=== PATIENT | female | born 1985 | race Caucasian/White ===

== ENCOUNTER 2017-01-12 15:43 | Inpatient (IN) | payer MEDICARE ==
[2017-01-12] MEDS ORDERED: DUONEB 0.5-3 MG/3 ml Neb IH ONE ×2 (16:47→16:54)
[2017-01-12] MEDS ORDERED: solu-MEDROL 125 MG IV ONE (16:47)
--- NOTE | 2017-01-12 16:54 | ERPHSYRPT ---
- History of Present Illness Time Seen by Provider: 01/12/17 16:49 Source: patient Exam Limitations: no limitations Patient Subjective Stated Complaint: has hx of asthma and is being treated for uri. saw family on monday and was put on steroids and antibiotics. is not getting any better and is much more short of breath today. Triage Nursing Assessment: arrives per ems with moderate shortness of breath. is receiving duo neb per ems. exp wheezes heard. skin w/d, color normal. iv estab per ems. Physician History: mod shortness of breath and wheezing getting worse since Monday, hx of asthmna and Hodgekins lymphoma, no chest pain, +fam hx CAD, mother [place] at age 50yrs , no fever Activities at Onset: none Severity of Dyspnea-Max: moderate Severity of Dyspnea-Current: mild Possible Cause: chronic episodes Modifying Factors: Improves With: albuterol nebulizer Allergies/Adverse Reactions: acetaminophen [From Vicodin] Allergy (Verified 01/12/17 16:46) adhesive tape Allergy (Verified 01/12/17 16:48) hydrocodone [From Vicodin] Allergy (Verified 01/12/17 16:46) ibuprofen [From Motrin] Allergy (Verified 01/12/17 16:46) Home Medications: Albuterol Sulfate [Proair Hfa] 8.5 gm IH DAILY PRN PRN 01/12/17 [History] Cetirizine HCl [Zyrtec] 10 mg PO DAILY 01/12/17 [History] Famotidine 20 mg [Pepcid 20 MG] 20 mg PO BID 01/12/17 [History] Fluticasone Propionate [Flonase NASAL] 16 gm NS DAILY 01/12/17 [History] Fluticasone/Salmeterol [Advair 250-50 Diskus] 1 each IH BID 01/12/17 [History] Levothyroxine Sodium [Levoxyl] 200 mcg PO DAILY 01/12/17 [History] Montelukast Sodium 10 mg [Singulair 10 MG] 10 mg PO DAILY 01/12/17 [History] Hx Tetanus, Diphtheria Vaccination/Date Given: Yes (2015) Hx Influenza Vaccination/Date Given: No Hx Pneumococcal Vaccination/Date Given: No - Review of Systems Constitutional: Fatigue, No Fever Eyes: No Symptoms Ears, Nose, & Throat: No Symptoms Respiratory: Dyspnea, Wheezing Cardiac: No Chest Pain Abdominal/Gastrointestinal: No Symptoms Genitourinary Symptoms: No Symptoms Musculoskeletal: No Back Pain Skin: No Skin Lesions Neurological: No Dizziness Psychological: No Symptoms - Past Medical History Pertinent Past Medical History: Yes Respiratory History: Asthma Other Medical History: hodgkins lymphoma, - Past Surgical History Past Surgical History: Yes Musculoskeletal: Orthopedic Surgery Other Surgical History: fx of ankle - Social History Smoking Status: Former smoker Exposure to second hand smoke: Yes Drug Use: marijuana Patient Lives Alone: No - Female History Hx Last Menstrual Period: 12/07/16 - Nursing Vital Signs Nursing Vital Signs: Initial Vital Signs Temperature 97.3 F 01/12/17 15:45 Pulse Rate 99 H 01/12/17 15:45 Respiratory Rate 24 01/12/17 15:45 Blood Pressure 155/80 01/12/17 15:45 O2 Sat by Pulse Oximetry 97 01/12/17 15:45 Pain Scale Pain Intensity 6 - Physical Exam General Appearance: no apparent distress Eye Exam: PERRL/EOMI, eyes nml inspection Ears, Nose, Throat Exam: hearing grossly normal Neck Exam: normal inspection Respiratory Exam: wheezing, No stridor Cardiovascular/Chest Exam: regular rate/rhythm Abdominal/Gastrointestinal Exam: soft, No tenderness Extremity Exam: non-tender Neurologic Exam: alert, oriented x 3, cooperative, normal mood/affect Skin Exam: normal color, warm, dry SpO2 Interpretation: normal SpO2: 97 Oxygen Delivery: Room Air - Course Nursing assessment & vital signs reviewed: Yes EKG Interpreted by Me: RATE (no stemi), Sinus Rhythm - Radiology Exams Chest X-ray Interpretation: Interpreted by me, No Pneumonia Ordered Tests: Active Orders 24 hr Category Date Time Status EKG-ER Only STAT Care 01/12/17 18:47 Active CHEST 2 VIEWS (PA AND LAT) Stat Exams 01/12/17 16:48 Taken BLOOD CULTURE Stat Lab 01/12/17 17:10 Received CBC W DIFF Stat Lab 01/12/17 16:47 Completed CMP Stat Lab 01/12/17 16:47 Completed D-DIMER QUANTITATION Stat Lab 01/12/17 16:47 Completed HCG QUALITATIVE,SERUM Stat Lab 01/12/17 Completed Lactic Acid Stat Lab 01/12/17 17:10 Results Manual Differential NC Stat Lab 01/12/17 16:47 Completed NT PRO BNP Stat Lab 01/12/17 16:47 Completed PROTIME WITH INR Stat Lab 01/12/17 18:15 Completed PTT Stat Lab 01/12/17 18:15 Completed TROPONIN Q3H Lab 01/12/17 16:00 Completed TROPONIN Q3H Lab 01/12/17 20:00 Ordered TROPONIN Q3H Lab 01/12/17 23:00 Ordered TROPONIN Q3H Lab 01/13/17 02:00 Ordered TROPONIN Q3H Lab 01/13/17 05:00 Ordered Respiratory Nebulizer STAT RT 01/12/17 16:49 Completed Transfer Order Routine Transfer 01/12/17 Ordered Medication Summary Generic Name Dose Route Start Last Admin Trade Name Freq PRN Reason Stop Dose Admin Sodium Chloride 1,000 mls @ 999 mls/hr 01/12/17 17:45 Sodium Chloride 0.9% 1000 Ml IV 01/12/17 20:45 .Q1H1M CRISTIANO Discontinued Medications Generic Name Dose Route Start Last Admin Trade Name Freq PRN Reason Stop Dose Admin Albuterol/Ipratropium 3 ml 01/12/17 16:47 01/12/17 16:56 Duoneb 0.5-3 Mg/3 Ml Neb IH 01/12/17 16:48 3 ml STAT ONE Administration Albuterol/Ipratropium Confirm 01/12/17 16:54 Duoneb 0.5-3 Mg/3 Ml Neb Administered 01/12/17 16:55 Dose 3 ml IH .STK-MED ONE Aspirin 324 mg 01/12/17 18:13 01/12/17 18:21 Baby Aspirin 81 Mg Chew PO 01/12/17 18:14 324 mg STAT ONE Administration Piperacillin Sod/Tazobactam Sod 3.375 gm in 100 mls @ 200 mls/hr 01/12/17 17: 39 01/12/17 17:57 Zosyn 3.375gm/100 Ml D5w IV 01/12/17 18:08 200 mls/hr STAT STA Administration Piperacillin Sod/Tazobactam Sod Confirm 01/12/17 17:45 Zosyn 3.375gm/100 Ml D5w Administered 01/12/17 17:46 Dose 3.375 gm in 100 mls @ ud IV .STK-MED ONE Methylprednisolone Sodium Succinate 125 mg 01/12/17 16:47 01/12/17 16:55 Solu-Medrol 125 Mg IV 01/12/17 16:48 125 mg STAT ONE Administration Methylprednisolone Sodium Succinate Confirm 01/12/17 16:55 Solu-Medrol 125 Mg Administered 01/12/17 16:56 Dose 125 mg .ROUTE .STK-MED ONE Morphine Sulfate 2 mg 01/12/17 18:13 01/12/17 18:26 Morphine Sulfate 2 Mg Inj IV 01/12/17 18:14 2 mg STAT ONE Administration Morphine Sulfate Confirm 01/12/17 18:20 Morphine Sulfate 2 Mg Inj Administered 01/12/17 18:21 Dose 2 mg .ROUTE .STK-MED ONE Lab/Rad Data: Laboratory Result Diagrams 01/12/17 16:47 01/12/17 16:47 Laboratory Results 01/12/17 01/12/17 01/12/17 Range/Units Unknown 18:15 17:10 WBC (4.0-10.5) K/mm3 RBC (4.1-5.4) M/mm3 Hgb (12.0-16.0) gm/dl Hct (35-47) % MCV (78-100) fl MCH (26-32) pg MCHC (32-36) g/dl RDW (11.5-14.0) % Plt Count (150-450) K/mm3 MPV (6-9.5) fl INR 1.01 (0.8-3.0) APTT 28.1 (25.3-37.0) SECONDS D-Dimer (0-500) ng/mL Sodium (136-145) mEq/L Potassium (3.5-5.1) mEq/L Chloride (98-107) mEq/L Carbon Dioxide (21-32) mEq/L Anion Gap (5-15) MEQ/L BUN (9-20) mg/dL Creatinine (0.55-1.30) mg/dl Estimated GFR ML/MIN Glucose (70-110) MG/DL Lactic Acid 3.3 H (0.4-2.0) Calcium (8.5-10.1) mg/dL Total Bilirubin (0.2-1.0) mg/dL AST (15-37) U/L ALT (12-78) U/L Alkaline Phosphatase (46-116) U/L Troponin I (0.000-0.056) ng/ml NT-Pro-B Natriuret Pep (0-125) pg/ml Serum Total Protein (6.4-8.2) gm/dL Albumin (3.4-5.0) g/dL Serum , Qual NEGATIVE (Negative) 01/12/17 01/12/17 01/12/17 Range/Units 16:47 16:47 16:47 WBC 10.8 H (4.0-10.5) K/mm3 RBC 4.97 (4.1-5.4) M/mm3 Hgb 14.1 (12.0-16.0) gm/dl Hct 41.9 (35-47) % MCV 84.3 (78-100) fl MCH 28.4 (26-32) pg MCHC 33.7 (32-36) g/dl RDW 15.0 H (11.5-14.0) % Plt Count 261 (150-450) K/mm3 MPV 10.1 H (6-9.5) fl INR (0.8-3.0) APTT (25.3-37.0) SECONDS D-Dimer < 215 (0-500) ng/mL Sodium 135 L (136-145) mEq/L Potassium 3.3 L (3.5-5.1) mEq/L Chloride 99 (98-107) mEq/L Carbon Dioxide 20.7 L (21-32) mEq/L Anion Gap 18.8 H (5-15) MEQ/L BUN 15 (9-20) mg/dL Creatinine 0.90 (0.55-1.30) mg/dl Estimated GFR > 60 ML/MIN Glucose 282 H (70-110) MG/DL Lactic Acid (0.4-2.0) Calcium 9.2 (8.5-10.1) mg/dL Total Bilirubin 0.30 (0.2-1.0) mg/dL AST 45 H (15-37) U/L ALT 86 H (12-78) U/L Alkaline Phosphatase 79 (46-116) U/L Troponin I (0.000-0.056) ng/ml NT-Pro-B Natriuret Pep 49 (0-125) pg/ml Serum Total Protein 7.6 (6.4-8.2) gm/dL Albumin 3.7 (3.4-5.0) g/dL Serum , Qual (Negative) 01/12/17 Range/Units 16:00 WBC (4.0-10.5) K/mm3 RBC (4.1-5.4) M/mm3 Hgb (12.0-16.0) gm/dl Hct (35-47) % MCV (78-100) fl MCH (26-32) pg MCHC (32-36) g/dl RDW (11.5-14.0) % Plt Count (150-450) K/mm3 MPV (6-9.5) fl INR (0.8-3.0) APTT (25.3-37.0) SECONDS D-Dimer (0-500) ng/mL Sodium (136-145) mEq/L Potassium (3.5-5.1) mEq/L Chloride (98-107) mEq/L Carbon Dioxide (21-32) mEq/L Anion Gap (5-15) MEQ/L BUN (9-20) mg/dL Creatinine (0.55-1.30) mg/dl Estimated GFR ML/MIN Glucose (70-110) MG/DL Lactic Acid (0.4-2.0) Calcium (8.5-10.1) mg/dL Total Bilirubin (0.2-1.0) mg/dL AST (15-37) U/L ALT (12-78) U/L Alkaline Phosphatase (46-116) U/L Troponin I < 0.017 (0.000-0.056) ng/ml NT-Pro-B Natriuret Pep (0-125) pg/ml Serum Total Protein (6.4-8.2) gm/dL Albumin (3.4-5.0) g/dL Serum , Qual (Negative) - Progress Progress: improved Air Movement: good Blood Culture(s) Obtained: Yes Antibiotics given: Yes Discussed with : Marie Will see patient in: hospital (full admit) Counseled pt/family regarding: lab results, diagnosis, rad results (lactate 3.3 , glucose 282, wbc 11.8, troponin and ddimer neg) - Departure Time of Disposition: 18:53 Departure Disposition: In-patient Admission Clinical Impression: COPD (chronic obstructive pulmonary disease) Qualifiers: COPD type: COPD with acute exacerbation Qualified Code(s): J44.1 - Chronic obstructive pulmonary disease with (acute) exacerbation Chest pain Qualifiers: Chest pain type: chest pain on breathing Qualified Code(s): R07.1 - Chest pain on breathing Condition: Fair Critical Care Time: No Referrals: RUDI GERONIMO [Primary Care Provider] - Instructions: Chronic Obstructive Pulmonary Disease
[2017-01-12] MEDS ORDERED: solu-MEDROL 125 MG ONE (16:55)
[2017-01-12 17:00] LABS: Mean Cell Volume 84.3 fl (78-100); Mean Corpuscular Hemoglobin 28.4 pg (26-32); Mean Platelet Volume 10.1 fl (6-9.5); Platelet Count 261 K/mm3 (150-450); Red Blood Count 4.97 M/mm3 (4.1-5.4); White Blood Count 10.8 K/mm3 (4.0-10.5)
[2017-01-12 17:10] LABS: ALBUMIN 3.7 g/dL (3.4-5.0); ALKALINE PHOSPHATASE 79 U/L (46-116); ANION GAP 18.8 MEQ/L (5-15); BLOOD UREA NITROGEN 15 mg/dL (9-20); CHLORIDE 99 mEq/L (98-107); Carbon Dioxide 20.7 mEq/L (21-32); Glucose 282 MG/DL (70-110); Potassium 3.3 mEq/L (3.5-5.1); SGOT/AST 45 U/L (15-37); SGPT/ALT 86 U/L (12-78); SODIUM 135 mEq/L (136-145); Total Protein 7.6 gm/dL (6.4-8.2)
[2017-01-12 17:15] LABS: Lactic Acid 3.3 (0.4-2.0)
[2017-01-12] MEDS ORDERED: Zosyn 3.375GM/100 Ml D5W 3.375 GM/100 ML IVPB IV STA (17:39)
[2017-01-12] MEDS ORDERED: Sodium Chloride 0.9% 1000 ML 1,000 ML ONE (17:45)
[2017-01-12] MEDS ORDERED: Zosyn 3.375GM/100 Ml D5W 3.375 GM/100 ML IVPB IV ONE (17:45)
[2017-01-12] MEDS ORDERED: BABY ASPIRIN 81 MG CHEW PO ONE (18:13)
[2017-01-12] MEDS ORDERED: MORPHINE SULFATE 2 MG INJ IV ONE (18:13)
[2017-01-12 18:18] LABS: INR 1.01 (0.8-3.0); PROTIME 11.2 SECONDS (9.95-12.35)
[2017-01-12] MEDS ORDERED: MORPHINE SULFATE 2 MG INJ ONE (18:20)
[2017-01-12 18:21] LABS: PTT 28.1 SECONDS (25.3-37.0)
[2017-01-12] MEDS ORDERED: Sodium Chloride 0.9% 1000 ML 2,000 ML ONE (19:10)
[2017-01-12] MEDS: Sodium Chloride 0.9% 1000 ML 1,000 ML IV SCH ×3 (19:11→23:04)
[2017-01-12 19:22] LABS: Eosinophil 1 % (0.00-3.0); Platelet Estimate NORMAL (NORMAL); Total Cells Counted 100
[2017-01-12] MEDS ORDERED: TYLENOL 325 MG PO PRN (19:48)
[2017-01-12] MEDS: MORPHINE SULFATE 2 MG INJ IV PRN (21:16)
[2017-01-12] MEDS: PROVENTIL 2.5 MG/3 ML NEB IH PRN (21:39)
[2017-01-12 22:45] LABS: Lactic Acid 5.5 (0.4-2.0)
[2017-01-12] MEDS ORDERED: NovoLOG Insulin ONE (23:10)
[2017-01-12] MEDS: NovoLOG Insulin SQ SCH (23:12)
[2017-01-13] MEDS: solu-MEDROL 125 MG IV SCH ×5 (00:51→23:52)
[2017-01-13] MEDS: Zosyn 3.375GM/100 Ml D5W 3.375 GM/100 ML IVPB IV SCH ×5 (00:51→23:52)
[2017-01-13] MEDS: MORPHINE SULFATE 2 MG INJ IV PRN ×6 (01:40→23:52)
[2017-01-13 02:46] LABS: Lactic Acid 5.1 (0.4-2.0)
[2017-01-13] MEDS ORDERED: PROVENTIL Solution 2.5 MG/0.5 ML IH ONE (03:53)
[2017-01-13] MEDS: PROVENTIL 2.5 MG/3 ML NEB IH PRN ×2 (03:55→06:46)
[2017-01-13 05:19] LABS: Lactic Acid 3.9 (0.4-2.0)
[2017-01-13 05:29] LABS: Mean Cell Volume 84.7 fl (78-100); Mean Corpuscular Hemoglobin 28.6 pg (26-32); Mean Platelet Volume 9.6 fl (6-9.5); Platelet Count 259 K/mm3 (150-450); Red Blood Count 4.72 M/mm3 (4.1-5.4); Red Cell Distribution Width 14.8 % (11.5-14.0)
[2017-01-13] MEDS: Advair Hfa 115/21 Common canister IH SCH ×2 (06:46→19:58)
[2017-01-13 07:27] LABS: Lactic Acid 4.9 (0.4-2.0)
[2017-01-13 07:27] LABS: BAND 6 % (0.0-2.0); Total Cells Counted 100
[2017-01-13 07:30] LABS: Platelet Estimate NORMAL (NORMAL); Toxic Granulation 2+
[2017-01-13] MEDS ORDERED: NovoLOG Insulin SQ SCH (07:30)
[2017-01-13 07:39] LABS: White Blood Count 12.8 K/mm3 (4.0-10.5)
[2017-01-13] MEDS: NovoLOG Insulin SQ SCH ×4 (07:41→22:52)
[2017-01-13] MEDS: Sodium Chloride 0.9% 1000 ML 1,000 ML IV SCH ×2 (08:04→19:42)
[2017-01-13] MEDS: PROTONIX 40 MG IV IV SCH (08:04)
--- NOTE | 2017-01-13 09:08 | XRAY ---
Exam: Two-view chest from 01/12/2017. Comparison: None. Indication: Shortness of breath. Findings: Upright PA and lateral chest films are submitted for evaluation. The heart size and contour are normal. The lungs appear slightly hypoinflated. The nenita and mediastinal structures appear unremarkable. The lungs reveal no infiltrates, vascular congestion, pneumothorax, or pleural fluid. The lateral film is slightly rotated. No acute osseous process is seen. Impression: 1. Slightly hypoinflated lungs. Otherwise, no acute cardiopulmonary disease is seen.
[2017-01-13] MEDS ORDERED: FLUCELVAX QUAD 2017-2018 SYR IM ONE (10:00)
[2017-01-13] MEDS: Diflucan 100 MG PO SCH (10:55)
[2017-01-13] MEDS: DUONEB 0.5-3 MG/3 ml Neb IH SCH ×4 (11:04→23:16)
[2017-01-13] MEDS: SYNTHROID 100 MCG PO SCH (11:38)
[2017-01-13] MEDS: Zithromax 250 MG TABLET PO SCH (11:38)
[2017-01-13] MEDS: Singulair 10 MG PO SCH (11:38)
[2017-01-13] MEDS: CLARITIN 10 MG PO SCH (11:38)
[2017-01-13] MEDS: Flonase NASAL NS SCH (11:38)
[2017-01-13] MEDS: Pepcid 20 MG PO SCH ×2 (11:40→22:52)
[2017-01-13] MEDS ORDERED: PROVENTIL COMMON CANISTER IH SCH (12:00)
[2017-01-13] MEDS ORDERED: solu-MEDROL 125 MG IV SCH (12:00)
--- NOTE | 2017-01-13 13:02 | HP ---
CHIEF COMPLAINT: Shortness of breath. HISTORY OF PRESENT ILLNESS: The patient is a 31 year-old white female with a long history of severe asthma. The patient had exacerbation and presented herself to the emergency room for evaluation and management. The patient just recently moved here from [place]. She has not seen any other physicians here to this point. The patient does also have a history of Hodgkin's lymphoma which is in remission. She had hypothyroidism. HOME MEDICATIONS: Albuterol PRN. She is on Zithromax presently. She takes Zyrtec 10 mg a day, famotidine 20 mg b.i.d., Flonase nasal spray, Advair 250/50 one puff b.i.d., levothyroxine 200 mcg daily, Singulair 10 mg a day, prednisone 20 mg, 16 mg is what she has presently been taking after a visit at [facility]. ALLERGIES: HYDROCODONE, IBUPROFEN, ADHESIVE TAPE. PHYSICAL EXAMINATION: Revealed an obese white female currently sitting up and conversing easily, not presently appearing to be short of breath obviously. Her temperature on arrival to the emergency room showed a temperature 97.3F, pulse 99, respiratory rate 24, blood pressure 155/80 with 02 saturation on room air noted to be at 97%. HEENT: Normocephalic, atraumatic. Pupils equal round reactive to light. The patient is currently wearing oxygen per nasal cannula. Oropharynx is pink and moist. NECK: Supple without lymphadenopathy, thyromegaly or JVD. CHEST: Bilateral wheezes pretty much throughout expiration. HEART: Regular rate and rhythm without murmurs, rubs or gallops. ABDOMEN: Soft, nontender, nondistended without hepatosplenomegaly or palpable masses. EXTREMITIES: Without cyanosis, clubbing or edema. NEUROLOGIC: The patient is alert and oriented x3 with no focal deficits noted. LAB DATA AND TESTS: The patient's chest x-ray showed slightly hypoinflated but otherwise normal lungs. Her initial laboratory studies showed a hemoglobin of 14.1, PLT count of 261,000. White blood cell count 10,800. HCG negative. Lactic acid elevated at 3.3. Metabolic panel showed a glucose of 282 nonfasting, BUN 15, creatinine 0.9. Electrolytes: Sodium 135, potassium 3.3. Liver enzymes are slightly elevated at 45 and 86 respectively. ProBNP normal at 49. D-dimer was less than 215. Troponins less than 0.017. International normalized ratio 1.01. ASSESSMENT: A patient with acute asthma. She has been admitted to the hospital for IV steroid medications and nebulizer treatments, oxygen on as needed basis. She will continue her usual home medications which are extensive for the use of asthma and allergies. The patient is requesting a Diflucan tablet for yeast infection. She reports she always get yeast infection when she ends up in the hospital. She reports that she has been previously intubated on previous admissions for exacerbation of asthma. Due to the patient's elevated lactic acid, sepsis protocol has been initiated. She has been started on Zosyn empirically. We will obtain a pulmonary consultation due to the patient's severity of asthma in case she should deteriorate.
[2017-01-13] MEDS ORDERED: Miralax Powder 17GM PACKET PO PRN (17:14)
[2017-01-13] MEDS ORDERED: Ventolin Hfa MDI IH SCH (22:00)
[2017-01-14] MEDS: DUONEB 0.5-3 MG/3 ml Neb IH SCH ×2 (03:31→06:59)
[2017-01-14] MEDS: Zosyn 3.375GM/100 Ml D5W 3.375 GM/100 ML IVPB IV SCH (05:19)
[2017-01-14] MEDS: MORPHINE SULFATE 2 MG INJ IV PRN (05:19)
[2017-01-14] MEDS: solu-MEDROL 125 MG IV SCH (05:19)
[2017-01-14 05:42] LABS: Mean Corpuscular Hemoglobin 28.1 pg (26-32); Mean Platelet Volume 9.4 fl (6-9.5); Platelet Count 267 K/mm3 (150-450); Red Blood Count 4.66 M/mm3 (4.1-5.4); Red Cell Distribution Width 14.7 % (11.5-14.0)
[2017-01-14 06:15] LABS: ALBUMIN 3.5 g/dL (3.4-5.0); ALKALINE PHOSPHATASE 62 U/L (46-116); ANION GAP 20.3 MEQ/L (5-15); BLOOD UREA NITROGEN 17 mg/dL (9-20); CHLORIDE 100 mEq/L (98-107); Carbon Dioxide 18.2 mEq/L (21-32); Glucose 303 MG/DL (70-110); Potassium 3.9 mEq/L (3.5-5.1); SGOT/AST 25 U/L (15-37); SGPT/ALT 72 U/L (12-78); SODIUM 135 mEq/L (136-145); Total Protein 7.3 gm/dL (6.4-8.2)
[2017-01-14] MEDS: Advair Hfa 115/21 Common canister IH SCH (06:59)
[2017-01-14 07:15] VITALS: BP 136/63; PULSE 101; O2SAT 96
[2017-01-14] MEDS: CLARITIN 10 MG PO SCH (08:15)
[2017-01-14] MEDS: Diflucan 100 MG PO SCH (08:15)
[2017-01-14] MEDS: Singulair 10 MG PO SCH (08:15)
[2017-01-14] MEDS: Pepcid 20 MG PO SCH (08:15)
[2017-01-14] MEDS: Zithromax 250 MG TABLET PO SCH (08:15)
[2017-01-14] MEDS: PROTONIX 40 MG IV IV SCH (08:15)
[2017-01-14] MEDS: SYNTHROID 100 MCG PO SCH (08:15)
[2017-01-14] MEDS: NovoLOG Insulin SQ SCH (08:15)
[2017-01-14] MEDS: Flonase NASAL NS SCH (08:16)
--- NOTE | 2017-01-14 08:31 | PCM.DS ---
Discharge Summary Date of Admission: 01/12/17 19:40 Admitting Physician: RUDI GERONIMO Consults: Consults on Case 01/13/17 10:47 Consult Pulmonology ROUTINE Primary Care Provider: RUDI GERONIMO Allergies Allergies adhesive tape Allergy (Verified 01/12/17 16:48) chlorhexidine Allergy (Verified 01/12/17 20:52) hydrocodone [From Vicodin] Allergy (Verified 01/12/17 16:46) ibuprofen [From Motrin] Allergy (Verified 01/12/17 16:46) Hospital Summary - Hospital Course Hospital Course: patient was admitted with asthma exacerbation, was treated with IV zosyn and solu medrol. her sats are normal, she feels much better. chest pain has resolved , she is afebrile and feeling much better. - Vitals & Intake/Output Vital Signs: Vital Signs Temperature 97.7 F 01/14/17 07:15 Pulse Rate 101 H 01/14/17 07:15 Respiratory Rate 20 01/14/17 07:15 Blood Pressure 136/63 01/14/17 07:15 O2 Sat by Pulse Oximetry 96 01/14/17 07:15 Oxygen-Last Documented O2 Percentage 2 Liters = 28% Intake & Output: Intake & Output 01/11/17 01/12/17 01/13/17 01/14/17 11:59 11:59 11:59 11:59 Intake Total 4120 2690 Output Total 1900 4000 Balance 2220 -1310 Weight 107.955 kg 107.955 kg - Lab Result Diagrams: 01/14/17 05:10 01/14/17 05:10 Lab Results-Last 24 Hrs: Accuchecks Date 01/14/17 Date 01/13/17 Date 01/13/17 Date 01/13/17 Time 08:12 Time 22:00 Time 16:30 Time 11:15 Accucheck Value: 304 Accucheck Value: 368 Accucheck Value: 379 Accucheck Value: 319 Lab Results-Last 24 Hours 01/13/17 01/14/17 01/14/17 Range/Units 05:13 05:10 05:10 WBC 17.0 H (4.0-10.5) K/mm3 RBC 4.66 (4.1-5.4) M/mm3 Hgb 13.1 (12.0-16.0) gm/dl Hct 39.6 (35-47) % MCV 85.0 (78-100) fl MCH 28.1 (26-32) pg MCHC 33.1 (32-36) g/dl RDW 14.7 H (11.5-14.0) % Plt Count 267 (150-450) K/mm3 MPV 9.4 (6-9.5) fl Sodium 135 L (136-145) mEq/L Potassium 3.9 (3.5-5.1) mEq/L Chloride 100 (98-107) mEq/L Carbon Dioxide 18.2 L (21-32) mEq/L Anion Gap 20.3 H (5-15) MEQ/L BUN 17 (9-20) mg/dL Creatinine 0.91 (0.55-1.30) mg/dl Estimated GFR > 60 ML/MIN Glucose 303 H (70-110) MG/DL Hemoglobin A1c 6.5 H (4.5-6.2) Calcium 9.3 (8.5-10.1) mg/dL Total Bilirubin 0.40 (0.2-1.0) mg/dL AST 25 (15-37) U/L ALT 72 (12-78) U/L Alkaline Phosphatase 62 (46-116) U/L Serum Total Protein 7.3 (6.4-8.2) gm/dL Albumin 3.5 (3.4-5.0) g/dL Micro Results-Entire Visit: Accuchecks Date 01/14/17 Date 01/13/17 Date 01/13/17 Date 01/13/17 Time 08:12 Time 22:00 Time 16:30 Time 11:15 Accucheck Value: 304 Accucheck Value: 368 Accucheck Value: 379 Accucheck Value: 319 - Procedures and Test Procedures and Tests throughout Hospitalization: Therapy Orders & Screens 01/12/17 21:02 neb [Respiratory Nebulizer] PRN Comment: Diagnosis: Shortness of Breath 01/13/17 07:00 Respiratory MDI BID Comment: Diagnosis: asthma 01/13/17 11:00 Respiratory Nebulizer Q4H Comment: DUONEB Q4 Diagnosis: asthma Discharge Exam General Appearance: no apparent distress, alert Respiratory Exam: normal breath sounds, lungs clear, No respiratory distress Cardiovascular Exam: regular rate/rhythm, normal heart sounds Gastrointestinal/Abdomen Exam: soft, No tenderness, No mass Extremity Exam: normal inspection, normal range of motion Final Diagnosis/Problem List - Final Discharge Diagnosis/Problem (1) Asthma exacerbation Current Visit: Yes Status: Acute Assessment & Plan: home on po prednisone taper, has nebulizer at home but states she needs duoneb refills. (2) Chest pain Current Visit: Yes Status: Acute - Discharge Disposition: Home, Self-Care Condition: Good Prescriptions: New Albuterol/Ipratropium 3ml Neb* [DUONEB 0.5-3 MG/3 ml Neb] 3 ml IH Q4HRT # 100 ampul.neb Azithromycin [Zithromax] 250 mg PO UD #6 tablet Continue Fluticasone Propionate [Flonase NASAL] 16 gm NS QAM Cetirizine HCl [Zyrtec] 10 mg PO QAM Albuterol Sulfate [Proair Hfa] 8.5 gm IH BID Montelukast Sodium 10 mg [Singulair 10 MG] 10 mg PO QAM Famotidine 20 mg [Pepcid 20 MG] 20 mg PO BID Levothyroxine Sodium [Levoxyl] 200 mcg PO QAM Fluticasone/Salmeterol [Advair 250-50 Diskus] 1 each IH BID Albuterol Sulfate [Proair Hfa] 1 puff IH UD PRN PRN Reason: Shortness Of Breath Prednisone 20 mg [Deltasone 20 mg] 60 mg PO QAM #18 tablet Discontinued Azithromycin [Zithromax Tri-Isaías] 500 mg PO QAM Instructions: Chronic Obstructive Pulmonary Disease Follow up with: RUDI GERONIMO [Primary Care Provider] - JAGJIT DUBOSE [ACTIVE STAFF] - 1 Week
[2017-01-14] MEDS ORDERED: LEVOTHYROXINE SODIUM 200 MCG PO SCH (10:00)
[2017-01-14] MEDS ORDERED: NON-FORMULARY ITEM (Cetirizine Hcl [Zyrtec] 10 MG) PO SCH (10:00)
== END 2017-01-14 10:05 | disposition home or self-care (01) | DRG 203 ==
LOC: ED 15:43 → MED SURG 19:40 → INTOOBSV 19:40 → OBSVTOIN 19:40
PROVIDERS: ADMIT Family Medicine; ATTEND Family Medicine
DX: J45.901 Unspecified asthma with (acute) exacerbation (principal); R07.9 Chest pain, unspecified; Z85.72 Personal history of non-Hodgkin lymphomas; E03.9 Hypothyroidism, unspecified; Z79.899 Other long term (current) drug therapy
CPT/HCPCS: 36415; 71020; 80053; 82962; 83036; 83605; 83880; 84484; 84703; 85025; 85027; 85379; 85610; 85730; 87040; 93005; 94640; 94760; 96360; 96361; 96374; 99285; G0008; J2270; J2543; J2930; 90682; A9270-GY

== ENCOUNTER 2017-01-28 03:21 | Observation (INO) | payer MEDICARE ==
[2017-01-28] MEDS ORDERED: DUONEB 0.5-3 MG/3 ml Neb IH ONE ×2 (03:35→03:36)
[2017-01-28] MEDS ORDERED: solu-MEDROL 125 MG IV ONE (03:36)
[2017-01-28] MEDS ORDERED: Sodium Chloride 0.9% 1000 ML 1,000 ML IV SCH ×2 (03:45→05:00)
[2017-01-28 03:48] LABS: BASOPHIL % 0.2 % (0.0-0.4); Eosinophil % 0.6 % (0.00-5.0); Granulocytes % 79.9 % (36.0-66.0); Mean Cell Volume 86.7 fl (78-100); Mean Corpuscular Hemoglobin 28.8 pg (26-32); Mean Platelet Volume 9.3 fl (6-9.5); Monocytes % 7.3 % (0.0-12.0); Platelet Count 185 K/mm3 (150-450); Red Blood Count 4.37 M/mm3 (4.1-5.4); Red Cell Distribution Width 15.7 % (11.5-14.0); White Blood Count 15.8 K/mm3 (4.0-10.5)
[2017-01-28] MEDS ORDERED: Tylenol #3 Tablet PO ONE (03:54)
--- NOTE | 2017-01-28 03:54 | ERPHSYRPT ---
- History of Present Illness Time Seen by Provider: 01/28/17 03:30 Source: patient Exam Limitations: clinical condition Patient Subjective Stated Complaint: shortness of air Triage Nursing Assessment: pt is alert and oriented x3, lung sound wheezy, pulses equal bilateral radius, pupils perrla2, skin warm dry and itnat, patietn has intermittant cough , dark green mucus expectorated. Physician History: PATIENT WITH A HISTORY OF COPD, ASTHMA, AND HODGKINS LYPMPHOMA COMPLAINS OF DIFFICULTY BREATHING, PRODUCTIVE COUGH YELLOW GREEN SPUTUM FOR 2 DAYS. DENIES FEVER OR CHILLS. HAS NO RELIEF AFTER TAKING NEBULIZERS AT HOME. Timing/Duration: yesterday Activities at Onset: none Severity of Dyspnea-Max: moderate Severity of Dyspnea-Current: moderate Possible Cause: occasional episodes Modifying Factors: Improves With: coughing, exertion Associated Symptoms: cough, wheezing International travel in last 2 weeks: No Allergies/Adverse Reactions: adhesive tape Allergy (Verified 01/12/17 16:48) chlorhexidine Allergy (Verified 01/12/17 20:52) hydrocodone [From Vicodin] Allergy (Verified 01/12/17 16:46) ibuprofen [From Motrin] Allergy (Verified 01/12/17 16:46) Home Medications: Albuterol Sulfate [Proair Hfa] 1 puff IH UD PRN 01/12/17 [History] Albuterol Sulfate [Proair Hfa] 8.5 gm IH BID 01/12/17 [History] Cetirizine HCl [Zyrtec] 10 mg PO QAM 01/12/17 [History] Famotidine 20 mg [Pepcid 20 MG] 20 mg PO BID 01/12/17 [History] Fluticasone Propionate [Flonase NASAL] 16 gm NS QAM 01/12/17 [History] Fluticasone/Salmeterol [Advair 250-50 Diskus] 1 each IH BID 01/12/17 [History] Levothyroxine Sodium [Levoxyl] 200 mcg PO QAM 01/12/17 [History] Montelukast Sodium 10 mg [Singulair 10 MG] 10 mg PO QAM 01/12/17 [History] Hx Tetanus, Diphtheria Vaccination/Date Given: Yes Hx Influenza Vaccination/Date Given: No Hx Pneumococcal Vaccination/Date Given: No Immunizations Up to Date: Yes - Review of Systems Constitutional: No Fever, No Chills Eyes: No Symptoms Ears, Nose, & Throat: No Symptoms Respiratory: Cough, Dyspnea, Dyspnea on Exertion ([place]), Wheezing Cardiac: No Symptoms, No Chest Pain, No Edema, No Syncope Abdominal/Gastrointestinal: No Symptoms, No Abdominal Pain, No Nausea, No Vomiting, No Diarrhea Genitourinary Symptoms: No Symptoms, No Dysuria Musculoskeletal: No Symptoms, No Back Pain, No Neck Pain Skin: No Rash Neurological: No Dizziness, No Focal Weakness, No Sensory Changes Psychological: No Symptoms Endocrine: No Symptoms All Other Systems: Reviewed and Negative - Past Medical History Pertinent Past Medical History: Yes Neurological History: No Pertinent History ENT History: No Pertinent History Cardiac History: No Pertinent History Respiratory History: Asthma Endocrine Medical History: Hypothyroidism Musculoskeletal History: No Pertinent History GI Medical History: GERD History: No Pertinent History Psycho-Social History: Anxiety Female Reproductive Disorders: No Pertinent History Other Medical History: HODGKINS LYMPHOMA, CHEMOTHERAPY AND RADIATION [id number], REMISSION IN 2009 - Past Surgical History Past Surgical History: Yes Neuro Surgical History: No Pertinent History Cardiac: No Pertinent History Respiratory: No Pertinent History Gastrointestinal: No Pertinent History Genitourinary: No Pertinent History Musculoskeletal: Orthopedic Surgery Female Surgical History: No Pertinent History Other Surgical History: RIGHT ANKLE - Social History Smoking Status: Never smoker Exposure to second hand smoke: Yes Drug Use: marijuana Patient Lives Alone: No - Nursing Vital Signs Nursing Vital Signs: Initial Vital Signs Temperature 98.5 F 01/28/17 03:22 Pulse Rate 121 H 01/28/17 03:22 Respiratory Rate 20 01/28/17 03:22 Blood Pressure 114/63 01/28/17 03:22 O2 Sat by Pulse Oximetry 95 01/28/17 03:22 Pain Scale Pain Intensity 6 - Physical Exam General Appearance: mild distress, other (NO AUDIBLE WHEEZES OR STRIDOR NOTED) Eye Exam: PERRL/EOMI Neck Exam: normal inspection, supple Respiratory Exam: diminished breath sounds, rhonchi, wheezing (MODERATE WHEEZES OR RHONCHI, WITH DIMINISHED BREATH SOUNDS AT BASES) Cardiovascular/Chest Exam: normal heart sounds, regular rate/rhythm Abdominal/Gastrointestinal Exam: soft, normal bowel sounds (OBESE) Extremity Exam: non-tender, normal range of motion, normal inspection Peripheral Pulses Exam: carotid (R): 2+, carotid (L): 2+, femoral (R): 2+, femoral (L): 2+, dorsalis-pedis (R): 2+, dorsalis-pedis (L): 2+ Neurologic Exam: alert, oriented x 3 Skin Exam: normal color SpO2 Interpretation: normal SpO2: 96 Oxygen Delivery: Room Air Ordered Tests: Active Orders 24 hr Category Date Time Status IV Insertion STAT Care 01/28/17 03:36 Active Oxygen-ED Only NASAL CANNULA 2 lpm Care 01/28/17 03:36 Active CHEST 1 VIEW (PORTABLE) Stat Exams 01/28/17 03:36 Taken BLOOD CULTURE Stat Lab 01/28/17 04:10 Received BMP Stat Lab 01/28/17 03:35 Completed CBC W DIFF Stat Lab 01/28/17 03:35 Completed HCG,QUALITATIVE URINE Stat Lab 01/28/17 04:10 Completed MAGNESIUM Stat Lab 01/28/17 03:35 Completed Respiratory Nebulizer STAT RT 01/28/17 03:36 Active Medication Summary Generic Name Dose Route Start Last Admin Trade Name Freq PRN Reason Stop Dose Admin Sodium Chloride 1,000 mls @ 500 mls/hr 01/28/17 03:45 01/28/17 04:14 Sodium Chloride 0.9% 1000 Ml IV 02/27/17 03:44 500 mls/hr .Q2H CRISTIANO Administration Azithromycin 500 mg in 250 mls @ 250 mls/hr 01/28/17 03:55 Zithromax 500 Mg/ 250 Ml Nacl Premix IV 01/28/17 04:54 STAT STA Discontinued Medications Generic Name Dose Route Start Last Admin Trade Name Freq PRN Reason Stop Dose Admin Acetaminophen 650 mg 01/28/17 04:11 01/28/17 04:33 Tylenol 325 Mg PO 01/28/17 04:12 650 mg STAT STA Administration Acetaminophen Confirm 01/28/17 04:32 Tylenol 325 Mg Administered 01/28/17 04:33 Dose 650 mg .ROUTE .STK-MED ONE Acetaminophen/Codeine Phosphate 1 tab 01/28/17 03:54 01/28/17 04:19 Tylenol #3 Tablet PO 01/28/17 03:55 1 tab STAT ONE Administration Acetaminophen/Codeine Phosphate Confirm 01/28/17 04:11 Tylenol #3 Tablet Administered 01/28/17 04:12 Dose 1 tab .ROUTE .STK-MED ONE Albuterol/Ipratropium 3 ml 01/28/17 03:36 01/28/17 03:41 Duoneb 0.5-3 Mg/3 Ml Neb IH 01/28/17 03:37 3 ml STAT ONE Administration Albuterol/Ipratropium Confirm 01/28/17 03:35 Duoneb 0.5-3 Mg/3 Ml Neb Administered 01/28/17 03:36 Dose 3 ml IH .STK-MED ONE Ceftriaxone Sodium/Dextrose 1 g in 50 mls @ 100 mls/hr 01/28/17 03:55 04:21 Rocephin 1 Gm-D5w 50 Ml Bag IV 01/28/17 04:24 100 mls/hr STAT STA Administration Ceftriaxone Sodium/Dextrose Confirm 01/28/17 04:11 Rocephin 1 Gm-D5w 50 Ml Bag Administered 01/28/17 04:12 Dose 1 g in 50 mls @ ud IV .STK-MED ONE Methylprednisolone Sodium Succinate 125 mg 01/28/17 03:36 01/28/17 04:17 Solu-Medrol 125 Mg IV 01/28/17 03:37 125 mg STAT ONE Administration Methylprednisolone Sodium Succinate Confirm 01/28/17 04:11 Solu-Medrol 125 Mg Administered 01/28/17 04:12 Dose 125 mg .ROUTE .STK-MED ONE Lab/Rad Data: Laboratory Result Diagrams 01/28/17 03:35 01/28/17 03:35 Laboratory Results 01/28/17 01/28/17 01/28/17 Range/Units 04:10 03:35 03:35 WBC 15.8 H (4.0-10.5) K/mm3 RBC 4.37 (4.1-5.4) M/mm3 Hgb 12.6 (12.0-16.0) gm/dl Hct 37.9 (35-47) % MCV 86.7 (78-100) fl MCH 28.8 (26-32) pg MCHC 33.2 (32-36) g/dl RDW 15.7 H (11.5-14.0) % Plt Count 185 (150-450) K/mm3 MPV 9.3 (6-9.5) fl Gran % 79.9 H (36.0-66.0) % Lymphocytes % 12.0 L (24.0-44.0) % Monocytes % 7.3 (0.0-12.0) % Eosinophils % 0.6 (0.00-5.0) % Basophils % 0.2 (0.0-0.4) % Basophils # 0.03 (0-0.4) Sodium 135 L (136-145) mEq/L Potassium 3.6 (3.5-5.1) mEq/L Chloride 99 (98-107) mEq/L Carbon Dioxide 21.8 (21-32) mEq/L Anion Gap 17.6 H (5-15) MEQ/L BUN 8 L (9-20) mg/dL Creatinine 0.71 (0.55-1.30) mg/dl Estimated GFR > 60 ML/MIN Glucose 173 H (70-110) MG/DL Calcium 9.3 (8.5-10.1) mg/dL Magnesium 1.9 (1.8-2.4) mg/dL Urine HCG, Qual NEGATIVE (Negative) - Progress Progress: improved Progress Note: 01/28/17 04:05 ADMINISTERED DUONEB AEROSOL, IV NORMAL SALINE 500ML/HR, SOLUMEDROL 125MG IV, AFTER 2 SETS OF BLOOD CULTURES, ROCEPHIN 1GM, ZITHROMAX 500MG IVPB. 01/28/17 04:52 XOPENEX 1.25MG AEROSOL TX , IMPROVED AIR EXCHANGE Blood Culture(s) Obtained: Yes Antibiotics given: Yes Discussed with : Marie (DISCUSSED WITH DR GERONIMO AT 0445 FOR OBSERVATION) - Departure Departure Disposition: Observation Clinical Impression: ACUTE EXACERBATION ASTHMA/COPD Condition: Stable Critical Care Time: No Referrals: RUDI GERONIMO [Primary Care Provider] -
[2017-01-28] MEDS ORDERED: Zithromax 500 MG/ 250 ML NaCl Premix 500 MG/250 ML IVPB IV STA (03:55)
[2017-01-28] MEDS ORDERED: ROCEPHIN 1 Gm-D5w 50 ml Bag** 1 G/50 ML IVPB IV STA (03:55)
[2017-01-28 04:01] LABS: ANION GAP 17.6 MEQ/L (5-15); BLOOD UREA NITROGEN 8 mg/dL (9-20); CHLORIDE 99 mEq/L (98-107); Carbon Dioxide 21.8 mEq/L (21-32); Glucose 173 MG/DL (70-110); MAGNESIUM 1.9 mg/dL (1.8-2.4); Potassium 3.6 mEq/L (3.5-5.1); SODIUM 135 mEq/L (136-145)
[2017-01-28] MEDS ORDERED: solu-MEDROL 125 MG ONE (04:11)
[2017-01-28] MEDS ORDERED: ROCEPHIN 1 Gm-D5w 50 ml Bag** 1 G/50 ML IVPB IV ONE (04:11)
[2017-01-28] MEDS ORDERED: Tylenol #3 Tablet ONE (04:11)
[2017-01-28] MEDS ORDERED: TYLENOL 325 MG PO STA (04:11)
[2017-01-28] MEDS ORDERED: Sodium Chloride 0.9% 1000 ML 1,000 ML ONE (04:11)
[2017-01-28] MEDS ORDERED: TYLENOL 325 MG ONE (04:32)
[2017-01-28] MEDS ORDERED: Sodium Chloride 3 ML UD NEBULES IH ONE (04:58)
[2017-01-28] MEDS ORDERED: Xopenex 1.25 MG/0.5 ML UD NEBULE IH ONE (04:58)
[2017-01-28] MEDS ORDERED: Zithromax 500 MG/ 250 ML NaCl Premix 500 MG/250 ML IVPB IV ONE (04:59)
[2017-01-28] MEDS ORDERED: Xopenex 1.25 MG/0.5 ML UD NEBULE IH PRN (05:01)
[2017-01-28] MEDS ORDERED: solu-MEDROL 125 MG IV SCH ×2 (06:00→12:00)
[2017-01-28] MEDS ORDERED: Advair Hfa 230/21 Mcg COMMON CANISTER IH SCH (07:00)
[2017-01-28] MEDS ORDERED: DUONEB 0.5-3 MG/3 ml Neb IH SCH (07:00)
[2017-01-28] MEDS: DUONEB 0.5-3 MG/3 ml Neb IH SCH ×4 (07:43→19:13)
[2017-01-28] MEDS: ADVAIR 500-50 DISKUS IH SCH ×2 (07:55→19:00)
[2017-01-28] MEDS ORDERED: Ativan 0.5 MG PO PRN (08:49)
--- NOTE | 2017-01-28 08:50 | XRAY ---
Indication: Dyspnea. Comparison: January 12, 2017. Portable chest again without focal infiltrate, consolidation, or large effusion. Heart is not enlarged. Bony thorax intact. Impression: Stable nonacute chest.
[2017-01-28] MEDS: Singulair 10 MG PO SCH (09:20)
[2017-01-28] MEDS: SYNTHROID 100 MCG PO SCH (09:20)
[2017-01-28] MEDS: Pepcid 20 MG PO SCH ×2 (09:20→21:29)
[2017-01-28] MEDS: TYLENOL 325 MG PO PRN ×2 (09:20→16:33)
[2017-01-28] MEDS ORDERED: Ventolin Hfa MDI IH PRN (09:24)
[2017-01-28] MEDS ORDERED: NON-FORMULARY ITEM (Cetirizine Hcl [Zyrtec] 10 MG) PO SCH (10:00)
[2017-01-28] MEDS ORDERED: DIFLUCAN PO ONE (10:00)
[2017-01-28] MEDS ORDERED: Ventolin Hfa MDI IH SCH (10:00)
[2017-01-28] MEDS: CLARITIN 10 MG PO SCH (11:01)
[2017-01-28] MEDS: Flonase NASAL NS SCH (11:01)
[2017-01-28] MEDS: solu-MEDROL 125 MG IV SCH ×2 (11:49→21:29)
[2017-01-28] MEDS: Ativan 0.5 MG PO PRN ×2 (16:34→22:13)
[2017-01-28] MEDS ORDERED: Zithromax 500 MG/ 250 ML NaCl Premix 500 MG/250 ML IVPB IV SCH (22:00)
[2017-01-28] MEDS ORDERED: ROCEPHIN 1 Gm-D5w 50 ml Bag** 1 G/50 ML IVPB IV SCH (22:00)
[2017-01-28] MEDS ORDERED: BENADRYL 25 MG CAPSULE PO PRN (22:10)
[2017-01-29] MEDS: DUONEB 0.5-3 MG/3 ml Neb IH SCH ×3 (00:11→06:59)
[2017-01-29] MEDS: solu-MEDROL 125 MG IV SCH (04:11)
[2017-01-29] MEDS: ADVAIR 500-50 DISKUS IH SCH (07:00)
[2017-01-29 07:07] VITALS: PULSE 111; O2SAT 95
[2017-01-29 07:21] VITALS: BP 127/61
[2017-01-29] MEDS: Pepcid 20 MG PO SCH (09:12)
[2017-01-29] MEDS: CLARITIN 10 MG PO SCH (09:12)
[2017-01-29] MEDS: Singulair 10 MG PO SCH (09:12)
[2017-01-29] MEDS: Ativan 0.5 MG PO PRN (09:12)
[2017-01-29] MEDS: SYNTHROID 100 MCG PO SCH (09:12)
[2017-01-29] MEDS: Flonase NASAL NS SCH (09:26)
--- NOTE | 2017-01-30 10:11 | HP ---
CHIEF COMPLAINT: Wheezing, shortness of breath. HISTORY OF PRESENT ILLNESS: The patient is a 31 year-old white female who recently moved to the area approximately a couple of months ago. She was seen in the hospital last month for exacerbation of her asthma. She was here for a couple of days and sent home. We saw her in the office in follow up and she was doing fine two days ago. Yesterday the patient began having problems with her wheezing again and started having productive cough. She presented herself to the emergency room and subsequently admitted to the hospital for further evaluation and management. PAST MEDICAL/SURGICAL HISTORY: Also significant for non-Hodgkin's lymphoma which is currently in remission. The patient has also hypothyroid, anxiety, gastroesophageal reflux disease. HOME MEDICATIONS: Currently include albuterol, cetirizine, famotidine, Flonase, Advair, levothyroxine, Montelukast. ALLERGIES: TAPE. CHLORHEXIDINE, HYDROCODONE, IBUPROFEN. PHYSICAL EXAMINATION: Revealed an obese, white female currently in no distress. HEENT: Normocephalic, atraumatic. Pupils equal round reactive to light. Extraocular movements intact. Oropharynx is pink and moist. NECK: Supple without lymphadenopathy, thyromegaly or JVD. CHEST: Reveals some rales on the right side. The patient is producing yellow thin mucous. HEART: Regular rate and rhythm without murmurs, rubs or gallops. ABDOMEN: Soft. No palpable masses. EXTREMITIES: Without clubbing, cyanosis or edema. NEUROLOGIC: The patient is alert and oriented x3. No focal deficits were noted. LAB DATA AND TESTS: Thus far showed HCG to be negative. White blood cell count 15,800, hemoglobin 12.6, PLT count 185,000. She does have what appears to be a mild left shift with 79.9% granulocytes. Her metabolic panel showed a sugar of 173, BUN 8, creatinine 0.71. Electrolytes otherwise normal. ASSESSMENT: A patient with asthma exacerbation. She will be admitted to the hospital for IV antibiotics, IV fluids and nebulizer treatments. She is allowed to continue on her home medications otherwise for her anxiety.
== END 2017-01-29 10:25 | disposition home or self-care (01) ==
LOC: ED 03:21 → MED SURG 05:18
PROVIDERS: ADMIT Family Medicine; ATTEND Family Medicine
DX: J45.901 Unspecified asthma with (acute) exacerbation (principal); J40 Bronchitis, not specified as acute or chronic; E03.9 Hypothyroidism, unspecified; Z85.72 Personal history of non-Hodgkin lymphomas; K21.9 Gastro-esophageal reflux disease without esophagitis; F41.9 Anxiety disorder, unspecified; Z79.899 Other long term (current) drug therapy
CPT/HCPCS: 36000; 36415; 71010; 80048; 83735; 84703; 85025; 87040; 87631; 94640; 94760; 96360; 96365; 96374; 99285; G0378; J0456; J0696; J2930; A9270-GY

== ENCOUNTER 2017-03-10 15:43 | Inpatient (IN) | payer MEDICARE ==
[2017-03-10] MEDS ORDERED: DUONEB 0.5-3 MG/3 ml Neb IH ONE ×5 (15:50→23:26)
[2017-03-10] MEDS ORDERED: solu-MEDROL 125 MG IV ONE (15:50)
--- NOTE | 2017-03-10 15:57 | ERPHSYRPT ---
- History of Present Illness Time Seen by Provider: 03/10/17 15:43 Source: patient Exam Limitations: no limitations Physician History: 31 y/o female with history of asthma sent from [facility] for severe asthma attack. Pt states that for the past 2 days, she has been having cough, congestion and shortness of breath. Today, patient developed wheezing. Pt was started on augmentin recently and started taking prednisone. Pt arrives in respiratory distress with an O2 sat of 95% on RA. Pt denies any fever, chills, sore throat, runny nose, chest pain or palpitations. Timing/Duration: day(s) Activities at Onset: none Severity of Dyspnea-Max: severe Severity of Dyspnea-Current: severe Possible Cause: frequent episodes Modifying Factors: Improves With: albuterol nebulizer Associated Symptoms: cough, wheezing International travel in last 2 weeks: No Allergies/Adverse Reactions: adhesive tape Allergy (Verified 01/12/17 16:48) chlorhexidine Allergy (Verified 01/12/17 20:52) hydrocodone [From Vicodin] Allergy (Verified 01/12/17 16:46) ibuprofen [From Motrin] Allergy (Verified 01/12/17 16:46) Home Medications: Albuterol Sulfate [Proair Hfa] 1 puff IH UD PRN 01/12/17 [History] Albuterol Sulfate [Proair Hfa] 8.5 gm IH BID 01/12/17 [History] Cetirizine HCl [Zyrtec] 10 mg PO QAM 01/12/17 [History] Famotidine 20 mg [Pepcid 20 MG] 20 mg PO BID 01/12/17 [History] Fluticasone Propionate [Flonase NASAL] 16 gm NS QAM 01/12/17 [History] Fluticasone/Salmeterol [Advair 250-50 Diskus] 1 each IH BID 01/12/17 [History] Levothyroxine Sodium [Levoxyl] 200 mcg PO QAM 01/12/17 [History] Montelukast Sodium 10 mg [Singulair 10 MG] 10 mg PO QAM 01/12/17 [History] Albuterol/Ipratropium 3ml Neb* [DUONEB 0.5-3 MG/3 ml Neb] 3 ml IH Q4HRT PRN [History] Lorazepam 0.5 mg [Ativan 0.5 MG] 0.5 mg PO Q6H PRN PRN 01/28/17 [History] Hx Tetanus, Diphtheria Vaccination/Date Given: Yes Hx Influenza Vaccination/Date Given: No Hx Pneumococcal Vaccination/Date Given: No - Review of Systems Constitutional: No Fever, No Chills Eyes: No Symptoms Ears, Nose, & Throat: No Symptoms Respiratory: Cough, Dyspnea, Dyspnea on Exertion ([place]), Wheezing Cardiac: No Chest Pain, No Edema, No Syncope Abdominal/Gastrointestinal: No Abdominal Pain, No Nausea, No Vomiting, No Diarrhea Genitourinary Symptoms: No Dysuria Musculoskeletal: No Back Pain, No Neck Pain Skin: No Rash Neurological: No Dizziness, No Focal Weakness, No Sensory Changes Psychological: No Symptoms Endocrine: No Symptoms All Other Systems: Reviewed and Negative - Past Medical History Pertinent Past Medical History: Yes Neurological History: No Pertinent History ENT History: No Pertinent History Cardiac History: No Pertinent History Respiratory History: Asthma Endocrine Medical History: Hypothyroidism Musculoskeletal History: No Pertinent History GI Medical History: GERD History: No Pertinent History Psycho-Social History: Anxiety Female Reproductive Disorders: No Pertinent History Other Medical History: HODGKINS LYMPHOMA, CHEMOTHERAPY AND RADIATION [id number], REMISSION IN 2009 - Past Surgical History Past Surgical History: Yes Neuro Surgical History: No Pertinent History Cardiac: No Pertinent History Respiratory: No Pertinent History Gastrointestinal: No Pertinent History Genitourinary: No Pertinent History Musculoskeletal: Orthopedic Surgery Female Surgical History: No Pertinent History Other Surgical History: RIGHT ANKLE - Social History Smoking Status: Never smoker Exposure to second hand smoke: Yes Drug Use: marijuana Patient Lives Alone: No - Female History Hx Now: No - Nursing Vital Signs Nursing Vital Signs: Initial Vital Signs Temperature 98.9 F 03/10/17 15:44 Pulse Rate 138 H 03/10/17 15:44 Respiratory Rate 24 03/10/17 15:44 Blood Pressure 151/112 03/10/17 15:44 O2 Sat by Pulse Oximetry 97 03/10/17 15:44 Pain Scale Pain Intensity 6 - Physical Exam General Appearance: moderate distress, alert Eye Exam: PERRL/EOMI Ears, Nose, Throat Exam: hearing grossly normal, normal ENT inspection Neck Exam: normal inspection, supple Respiratory Exam: respiratory distress, wheezing Cardiovascular/Chest Exam: normal heart sounds, regular rate/rhythm Abdominal/Gastrointestinal Exam: soft, No tenderness, No distention, No mass Extremity Exam: non-tender, normal range of motion, normal inspection, no calf tenderness, no pedal edema Neurologic Exam: alert, oriented x 3, cooperative, architectural administrative assistant II-XII nml as tested, sensation nml, No motor deficits Skin Exam: normal color, warm, No dry SpO2 Interpretation: normal - Course Nursing assessment & vital signs reviewed: Yes Ordered Tests: Active Orders 24 hr Category Date Time Status Bedrest ROUTINE Activity 03/10/17 18:38 Active Admission/Status Order ROUTINE Care 03/10/17 18:38 Active Interpreter Translator STAT Care 03/10/17 15:51 Active Code Status Order ROUTINE Care 03/10/17 18:38 Active IV Care Q6H Care 03/10/17 18:38 Active IV Insertion STAT Care 03/10/17 15:50 Active NPO (ED) STAT Care 03/10/17 15:50 Active Ray Pedrazae, Apply ROUTINE Care 03/10/17 18:38 Active Weight,Daily 0600 Care 03/10/17 18:38 Active CHEST 1 VIEW (PORTABLE) Stat Exams 03/10/17 15:51 Completed ARTERIAL BLOOD GASES Stat Lab 03/10/17 16:10 Completed BLOOD CULTURE Stat Lab 03/10/17 16:10 Received BMP AM.LAB Lab 03/11/17 04:00 Ordered CBC AM.LAB Lab 03/11/17 04:00 Ordered CBC W DIFF Stat Lab 03/10/17 16:00 Completed CMP Stat Lab 03/10/17 16:00 Completed MAGNESIUM Stat Lab 03/10/17 16:00 Completed Manual Differential NC Stat Lab 03/10/17 16:00 Completed TROPONIN Q3H Lab 03/10/17 16:00 Completed Respiratory Nebulizer STAT RT 03/10/17 15:51 Active Respiratory Nebulizer STAT RT 03/10/17 16:49 Completed Transfer Order Routine Transfer 03/10/17 Ordered Medication Summary Generic Name Dose Route Start Last Admin Trade Name Freq PRN Reason Stop Dose Admin Albuterol/Ipratropium 3 ml 03/10/17 19:00 Duoneb 0.5-3 Mg/3 Ml Neb IH 04/09/17 18:59 Q4HRT CRISTIANO Levofloxacin/Dextrose 750 mg in 150 mls @ 100 mls/hr 03/11/17 10:00 Levofloxacin 750mg/150ml D5w IV 04/10/17 09:59 Q24H10 CRISTIANO Methylprednisolone Sodium Succinate 80 mg 03/11/17 00:00 Solu-Medrol 125 Mg IV 04/10/17 00:00 Q6HT CRISTIANO Discontinued Medications Generic Name Dose Route Start Last Admin Trade Name Freq PRN Reason Stop Dose Admin Albuterol/Ipratropium 3 ml 03/10/17 15:50 03/10/17 16:01 Duoneb 0.5-3 Mg/3 Ml Neb IH 03/10/17 15:51 3 ml STAT ONE Administration Albuterol/Ipratropium Confirm 03/10/17 15:55 Duoneb 0.5-3 Mg/3 Ml Neb Administered 03/10/17 15:56 Dose 3 ml IH .STK-MED ONE Albuterol/Ipratropium 3 ml 03/10/17 16:49 03/10/17 17:19 Duoneb 0.5-3 Mg/3 Ml Neb IH 03/10/17 16:50 3 ml STAT ONE Administration Albuterol/Ipratropium Confirm 03/10/17 17:15 Duoneb 0.5-3 Mg/3 Ml Neb Administered 03/10/17 17:16 Dose 3 ml IH .STK-MED ONE Levofloxacin/Dextrose 750 mg in 150 mls @ 100 mls/hr 03/10/17 16:49 03/10/17 16:58 Levofloxacin 750mg/150ml D5w IV 03/10/17 18:18 100 mls/hr STAT STA Administration Levofloxacin/Dextrose Confirm 03/10/17 16:57 Levofloxacin 750mg/150ml D5w Administered 03/10/17 16:58 Dose 750 mg in 150 mls @ ud IV .STK-MED ONE Methylprednisolone Sodium Succinate 125 mg 03/10/17 15:50 03/10/17 16:46 Solu-Medrol 125 Mg IV 03/10/17 15:51 125 mg STAT ONE Administration Methylprednisolone Sodium Succinate Confirm 03/10/17 16:42 Solu-Medrol 125 Mg Administered 03/10/17 16:43 Dose 125 mg .ROUTE .STK-MED ONE Morphine Sulfate 2 mg 03/10/17 16:48 03/10/17 16:58 Morphine Sulfate 2 Mg Inj IV 03/10/17 16:49 2 mg STAT ONE Administration Morphine Sulfate Confirm 03/10/17 16:57 Morphine Sulfate 2 Mg Inj Administered 03/10/17 16:58 Dose 2 mg .ROUTE .STK-MED ONE Morphine Sulfate 4 mg 03/10/17 18:37 03/10/17 19:09 Morphine Sulfate 4 Mg Inj IV 03/10/17 18:38 4 mg STAT ONE Administration Morphine Sulfate Confirm 03/10/17 19:05 Morphine Sulfate 4 Mg Inj Administered 03/10/17 19:06 Dose 4 mg .ROUTE .STK-MED ONE Oseltamivir Phosphate 75 mg 03/10/17 17:49 03/10/17 18:08 Tamiflu 75mg Capsule PO 03/10/17 17:50 75 mg STAT ONE Administration Oseltamivir Phosphate Confirm 03/10/17 18:06 Tamiflu 75mg Capsule Administered 03/10/17 18:07 Dose 75 mg PO .STK-MED ONE Lab/Rad Data: Laboratory Result Diagrams 03/10/17 16:00 03/10/17 16:00 Laboratory Results 03/10/17 03/10/17 03/10/17 Range/Units 16:10 16:10 16:00 WBC (4.0-10.5) K/mm3 RBC (4.1-5.4) M/mm3 Hgb (12.0-16.0) gm/dl Hct (35-47) % MCV (78-100) fl MCH (26-32) pg MCHC (32-36) g/dl RDW (11.5-14.0) % Plt Count (150-450) K/mm3 MPV (6-9.5) fl Segmented Neutrophils (36.0-66.0) % Band Neutrophils (0.0-2.0) % Lymphocytes (Manual) (24-44) % Monocytes (Manual) (0.0-12.0) % Differential Comment Platelet Estimate (NORMAL) Puncture Site RIGHT RADIAL pCO2 27 L (35-45) mmHg pO2 77 (75-100) mmHg Base Excess -7.0 L (-2.0-2.0) O2 Saturation 94.7 (94-100) g/dF ABG pH 7.39 (7.35-7.45) ABG HCO3 16.3 L* (22-28) ABG O2 Sat (Measured) 98.5 (95-100) % Robert Test YES A-a Gradient 39 a/A Ratio 0.66 Hemoglobin 14.8 Carboxyhemoglobin 3.0 (0.0-6.9) % THgb Methemoglobin 0.9 L (1.4-1.5) % Temperature 37.0 C POC O2 Flow Rate 21 % Sodium (136-145) mEq/L Potassium 3.9 (3.5-5.1) mEq/L Chloride (98-107) mEq/L Carbon Dioxide (21-32) mEq/L Anion Gap (5-15) MEQ/L BUN (9-20) mg/dL Creatinine (0.55-1.30) mg/dl Estimated GFR ML/MIN Glucose (70-110) MG/DL Calcium (8.5-10.1) mg/dL Magnesium (1.8-2.4) mg/dL Total Bilirubin (0.2-1.0) mg/dL AST (15-37) U/L ALT (12-78) U/L Alkaline Phosphatase (46-116) U/L Troponin I < 0.017 (0.000-0.056) ng/ml Serum Total Protein (6.4-8.2) gm/dL Albumin (3.4-5.0) g/dL Influenza Type A Ag POSITIVE (NEGATIVE) Influenza Type B Ag NEGATIVE (NEGATIVE) RSV (PCR) NEGATIVE (Negative) 03/10/17 03/10/17 Range/Units 16:00 16:00 WBC 15.1 H (4.0-10.5) K/mm3 RBC 4.83 (4.1-5.4) M/mm3 Hgb 14.2 (12.0-16.0) gm/dl Hct 42.6 (35-47) % MCV 88.2 (78-100) fl MCH 29.4 (26-32) pg MCHC 33.3 (32-36) g/dl RDW 16.2 H (11.5-14.0) % Plt Count 280 (150-450) K/mm3 MPV 9.9 H (6-9.5) fl Segmented Neutrophils 91 H (36.0-66.0) % Band Neutrophils 3 H (0.0-2.0) % Lymphocytes (Manual) 4 L (24-44) % Monocytes (Manual) 2 (0.0-12.0) % Differential Comment NORMAL Platelet Estimate NORMAL (NORMAL) Puncture Site pCO2 (35-45) mmHg pO2 (75-100) mmHg Base Excess (-2.0-2.0) O2 Saturation (94-100) g/dF ABG pH (7.35-7.45) ABG HCO3 (22-28) ABG O2 Sat (Measured) (95-100) % Robert Test A-a Gradient a/A Ratio Hemoglobin Carboxyhemoglobin (0.0-6.9) % THgb Methemoglobin (1.4-1.5) % Temperature C POC O2 Flow Rate % Sodium 134 L (136-145) mEq/L Potassium 3.7 (3.5-5.1) mEq/L Chloride 100 (98-107) mEq/L Carbon Dioxide 17.8 L (21-32) mEq/L Anion Gap 19.5 H (5-15) MEQ/L BUN 8 L (9-20) mg/dL Creatinine 1.26 (0.55-1.30) mg/dl Estimated GFR 53 ML/MIN Glucose 281 H (70-110) MG/DL Calcium 9.7 (8.5-10.1) mg/dL Magnesium 1.9 (1.8-2.4) mg/dL Total Bilirubin 0.70 (0.2-1.0) mg/dL AST 68 H (15-37) U/L ALT 63 (12-78) U/L Alkaline Phosphatase 72 (46-116) U/L Troponin I (0.000-0.056) ng/ml Serum Total Protein 8.9 H (6.4-8.2) gm/dL Albumin 4.1 (3.4-5.0) g/dL Influenza Type A Ag (NEGATIVE) Influenza Type B Ag (NEGATIVE) RSV (PCR) (Negative) - Progress Progress: improved Progress Note: 03/10/17 18:34 Pt feels better after receiving 2 duonebs, solumedrol, morphine and NS fluids. The CXR shows a small infiltrate on the left side. The influenza is positive. Pt was started on levquin and tamiflu. Pt has been admitted to Dr Smith for pneumonia, asthma and influenza. - Departure Time of Disposition: 18:36 Departure Disposition: In-patient Admission Clinical Impression: Influenza A Asthma Qualifiers: Asthma severity: moderate Asthma persistence: unspecified Asthma complication type: unspecified Qualified Code(s): J45.909 - Unspecified asthma, uncomplicated Pneumonia Qualifiers: Pneumonia type: due to unspecified organism Laterality: left Lung location: lower lobe of lung Qualified Code(s): J18.1 - Lobar pneumonia, unspecified organism Condition: Fair Critical Care Time: Yes Critical Care Time(excluding separately billable procedures): 75-104 minutes Referrals: RUDI GERONIMO [Primary Care Provider] -
[2017-03-10 16:15] LABS: Hematocrit 42.6 % (35-47); Hemoglobin 14.2 gm/dl (12.0-16.0); Mean Cell Volume 88.2 fl (78-100); Mean Corpuscular Hemoglobin 29.4 pg (26-32); Mean Corpuscular Hgb Concent. 33.3 g/dl (32-36); Mean Platelet Volume 9.9 fl (6-9.5); Platelet Count 280 K/mm3 (150-450); Red Blood Count 4.83 M/mm3 (4.1-5.4); Red Cell Distribution Width 16.2 % (11.5-14.0); White Blood Count 15.1 K/mm3 (4.0-10.5)
[2017-03-10 16:22] LABS: A-aADO2 39; ABG HEMOGLOBIN 14.8; ABG POTASSIUM 3.9 (3.5-5.1); ABG SITE RIGHT RADIAL; ALLEN TEST OK? YES; ARTERIAL BLD GAS O2 SATURATION 98.5 % (95-100); ARTERIAL BLOOD GAS FIO2 21 %; ARTERIAL BLOOD GAS PCO2 27 mmHg (35-45); ARTERIAL BLOOD GAS PO2 77 mmHg (75-100); ARTERIAL BLOOD GAS pH 7.39 (7.35-7.45); HCO3- 16.3 (22-28); HGB O2 SAT 94.7 g/dF (94-100); Methhemoglobin 0.9 % (1.4-1.5); paO2 pAO1 0.66
--- NOTE | 2017-03-10 16:31 | XRAY ---
Indication: Short of breath. Comparison: January 28, 2017. Portable chest slightly degraded by respiration/motion artifact with now subtle left base infiltrate versus atelectasis. Remaining heart, lungs, and bony thorax normal.
[2017-03-10] MEDS ORDERED: solu-MEDROL 125 MG ONE (16:42)
[2017-03-10] MEDS ORDERED: MORPHINE SULFATE 2 MG INJ IV ONE (16:48)
[2017-03-10] MEDS ORDERED: LEVOFLOXACIN 750MG/150ML D5W 750 MG/150 ML BAG IV STA (16:49)
[2017-03-10] MEDS ORDERED: MORPHINE SULFATE 2 MG INJ ONE (16:57)
[2017-03-10] MEDS ORDERED: LEVOFLOXACIN 750MG/150ML D5W 750 MG/150 ML BAG IV ONE (16:57)
[2017-03-10 17:11] LABS: ALBUMIN 4.1 g/dL (3.4-5.0); ANION GAP 19.5 MEQ/L (5-15); BILIRUBIN,TOTAL 0.7 mg/dL (0.2-1.0); Calcium 9.7 mg/dL (8.5-10.1); Carbon Dioxide 17.8 mEq/L (21-32); Creatinine 1 1.26 mg/dl (0.55-1.30); MAGNESIUM 1.9 mg/dL (1.8-2.4); Potassium 3.7 mEq/L (3.5-5.1); Total Protein 8.9 gm/dL (6.4-8.2)
[2017-03-10 17:21] LABS: BAND 3 % (0.0-2.0); Lymphocytes 4 % (24-44); Monocyte 2 % (0.0-12.0); Neutrophils 91 % (36.0-66.0); Total Cells Counted 100
[2017-03-10 17:22] LABS: Platelet Estimate NORMAL (NORMAL)
[2017-03-10 17:45] LABS: INFLUENZA A POSITIVE (NEGATIVE); INFLUENZA B NEGATIVE (NEGATIVE); RESPIRATORY SYNCTIAL VIRUS NEGATIVE (Negative)
[2017-03-10] MEDS ORDERED: Tamiflu 75MG Capsule PO ONE ×2 (17:49→18:06)
[2017-03-10] MEDS ORDERED: MORPHINE SULFATE 4 MG INJ IV ONE (18:37)
[2017-03-10] MEDS ORDERED: DUONEB 0.5-3 MG/3 ml Neb IH SCH (19:00)
[2017-03-10] MEDS ORDERED: MORPHINE SULFATE 4 MG INJ ONE (19:05)
[2017-03-10] MEDS ORDERED: TYLENOL 325 MG PO PRN (21:19)
[2017-03-10] MEDS ORDERED: Tussionex Pennkinetic Susp PO PRN (21:20)
[2017-03-10] MEDS ORDERED: DIFLUCAN PO ONE (21:30)
[2017-03-10] MEDS ORDERED: Diflucan 100 MG ONE (22:12)
[2017-03-10] MEDS: solu-MEDROL 125 MG IV SCH (23:06)
[2017-03-10] MEDS: Sodium Chloride 0.9% 1000 ML 1,000 ML IV SCH (23:08)
[2017-03-10] MEDS: Ativan 0.5 MG PO PRN (23:10)
[2017-03-10] MEDS: DUONEB 0.5-3 MG/3 ml Neb IH SCH (23:31)
[2017-03-11] MEDS: MORPHINE SULFATE 4 MG INJ IV PRN ×4 (02:45→20:03)
[2017-03-11] MEDS: DUONEB 0.5-3 MG/3 ml Neb IH SCH ×6 (03:18→23:13)
[2017-03-11] MEDS: solu-MEDROL 125 MG IV SCH ×3 (04:52→21:12)
[2017-03-11] MEDS: Ativan 0.5 MG PO PRN ×4 (06:49→21:13)
[2017-03-11] MEDS ORDERED: Ativan 0.5 MG PO PRN (08:01)
[2017-03-11] MEDS ORDERED: Ventolin Hfa MDI IH PRN (08:22)
[2017-03-11] MEDS: ADVAIR 250-50 DISKUS 14 DOSE IH SCH (08:23)
[2017-03-11] MEDS: SYNTHROID 100 MCG PO SCH (08:26)
[2017-03-11] MEDS: ZOLOFT 50 MG TABLET PO SCH ×2 (08:26→09:13)
[2017-03-11] MEDS: Singulair 10 MG PO SCH (08:26)
[2017-03-11] MEDS: Pepcid 20 MG PO SCH ×2 (08:28→21:12)
[2017-03-11] MEDS: CLARITIN 10 MG PO SCH (08:28)
[2017-03-11] MEDS: Sodium Chloride 0.9% 1000 ML 1,000 ML IV SCH ×3 (08:28→20:57)
[2017-03-11] MEDS: LEVOFLOXACIN 750MG/150ML D5W 750 MG/150 ML BAG IV SCH (08:29)
[2017-03-11] MEDS: Flonase NASAL NS SCH (08:31)
[2017-03-11] MEDS ORDERED: Pepcid 20 MG PO SCH (10:00)
[2017-03-11] MEDS ORDERED: LEVOTHYROXINE SODIUM 200 MCG PO SCH (10:00)
[2017-03-11] MEDS ORDERED: NON-FORMULARY ITEM (Cetirizine Hcl [Zyrtec] 10 MG) PO SCH (10:00)
[2017-03-11] MEDS ORDERED: LEVOFLOXACIN 750MG/150ML D5W 750 MG/150 ML BAG IV SCH (10:00)
--- NOTE | 2017-03-11 10:07 | PCM.HP ---
History of Present Illness - Chief Complaint Chief Complaint: Asthma, pneumonia, influenza History of Present Illness: is a 31 year old female pt who recently moved here from [place], pt of Dr. Salazar, who came to c/o 1d of cough, shortness of breath, ear pain, and throat pain. She was sent to ER in respiratory distress and found to have LLL pneumonia and Influenza A. She was admitted on IV levaquin and po tamiflu. Last night she told the nurse and her family that she wanted to kill herself; she could wrap the phone cord around her neck. She was transferred to the ICU and started on zoloft, which she has taken in the past. She notes she was inpatient at least twice in [place] for depression and suicide attempt. This morning she denies any suicidal ideation. - Review of Systems Constitutional: No Fever Ears, Nose, & Throat: Ear Pain, Throat Pain Cardiac: Chest Pain (with cough) Abdominal/Gastrointestinal: Nausea, Vomiting (in ER x 1), Appetite Changes Skin: Rash (pt thinks she has bed bugs; lesions on legs) Psychological: Anxiety, Depression, Suicidal Ideations Medications & Allergies Home Medications: Home Medication List Albuterol Sulfate [Proair Hfa] 8.5 gm IH BID PRN 01/12/17 [History Confirmed ] Cetirizine HCl [Zyrtec] 10 mg PO QAM 01/12/17 [History Confirmed 03/10/17] Famotidine 20 mg [Pepcid 20 MG] 20 mg PO BID 01/12/17 [History Confirmed 03/10/17] Fluticasone Propionate [Flonase NASAL] 16 gm NS QAM 01/12/17 [History Confirmed 03/10/17] Fluticasone/Salmeterol [Advair 250-50 Diskus] 1 each IH BID 01/12/17 [History Confirmed 03/10/17] Levothyroxine Sodium [Levoxyl] 200 mcg PO QAM 01/12/17 [History Confirmed ] Montelukast Sodium 10 mg [Singulair 10 MG] 10 mg PO QAM 01/12/17 [History Confirmed 03/10/17] Albuterol/Ipratropium 3ml Neb* [DUONEB 0.5-3 MG/3 ml Neb] 3 ml IH Q4HRT PRN [History Confirmed 03/10/17] Lorazepam 0.5 mg [Ativan 0.5 MG] 0.5 mg PO Q6H PRN PRN 01/28/17 [History Confirmed 03/10/17] Allergies/Adverse Reactions: Allergies Allergy/AdvReac Type Severity Reaction Status Date / Time adhesive tape Allergy Verified 01/12/17 16:48 chlorhexidine Allergy Verified 01/12/17 20:52 hydrocodone [From Vicodin] Allergy Verified 01/12/17 16:46 ibuprofen [From Motrin] Allergy Verified 01/12/17 16:46 - Past Medical History Past Medical History: Yes Neurological History: No Pertinent History ENT History: No Pertinent History Cardiac History: No Pertinent History Respiratory History: Asthma, Pneumonia Endocrine Medical History: Hypothyroidism Musculoskelatal History: No Pertinent History GI Medical History: GERD History: No Pertinent History Pyscho-Social History: Anxiety Reproductive Disorders: No Pertinent History Comment: [facility]YMPH[facility], CHEMOTHERAPY AND RADIATION [id number], REMISSION IN 2009 - Female History Hx Last Menstrual Period: 02/06/2017 Are you now?: No - Past Surgical History Past Surgical History: Yes Neuro Surgical History: No Pertinent History Cardiac History: No Pertinent History Respiratory Surgery: No Pertinent History GI Surgical History: No Pertinent History Genitourinary Surgical Hx: No Pertinent History Musculskeletal Surgical Hx: Orthopedic Surgery Female Surgical History: No Pertinent History Other Surgical History: RIGHT ANKLE - Social History Smoking Status: Never smoker Exposure to second hand smoke: Yes Alcohol: Occasionally Drug Use: marijuana - Physical Exam Vital Signs: Vital Signs - 24 hr Temp Pulse Resp BP Pulse Ox 03/11/17 08:16 74 18 97 03/11/17 08:00 97.6 F 105 H 15 106/69 94 L 03/11/17 04:00 97.8 F 113 H 16 108/61 96 03/11/17 03:24 103 H 18 94 L 03/11/17 00:00 98.2 F 117 H 20 117/56 96 03/10/17 23:33 117 H 16 96 03/10/17 21:00 98.3 F 121 H 22 119/60 94 L 03/10/17 20:00 125 H 03/10/17 18:08 98.4 F 114 H 18 135/67 96 03/10/17 17:23 127 H 22 98 03/10/17 17:19 135 H 24 96 03/10/17 16:01 114 H 24 98 03/10/17 15:44 98.9 F 138 H 24 151/112 95 General Appearance: no apparent distress, alert, obese Neurologic Exam: oriented x 3, cooperative Eye Exam: eyes nml inspection Ears, Nose, Throat Exam: moist mucous membranes, pharyngeal erythema (mild, no exudate, no tonsillar hypertrophy), other (TM serous fluid bilat, no pus) Respiratory Exam: normal breath sounds, lungs clear, No crackles/rales, No rhonchi, No wheezing Cardiovascular Exam: regular rate/rhythm, normal heart sounds, No murmur Gastrointestinal/Abdomen Exam: soft, normal bowel sounds, No tenderness, No distention, No mass, No guarding, No rebound Back Exam: normal inspection, No rash Extremity Exam: No pedal edema, No swelling Skin Exam: normal color, warm, dry, rash (scattered punctate erythematous lesions on LE bilat) Results - Other Procedures and Tests Respiratory Therapy 03/11/17 03:24 neb [Respiratory Nebulizer] Q4H Assessment/Plan (1) Pneumonia Current Visit: Yes Status: Acute Qualifiers: Pneumonia type: due to unspecified organism Laterality: left Lung location: lower lobe of lung Qualified Code(s): J18.1 - Lobar pneumonia, unspecified organism Assessment & Plan: On IV levaquin. Code(s): J18.9 - PNEUMONIA, UNSPECIFIED ORGANISM (2) Influenza A Current Visit: Yes Status: Acute Assessment & Plan: On po tamiflu. Code(s): J10.1 - FLU DUE TO OTH IDENT INFLUENZA VIRUS W OTH RESP MANIFEST (3) Asthma exacerbation Current Visit: No Status: Acute Qualifiers: Asthma severity: severe Assessment & Plan: She has been intubated x4 in the past. She is on steroid IV; just decreased from 80mg IV q6h to 60mg IV q8h. Would anticipate with her PNA and influenza she will need at least another 1-2 days, possibly more, before being discharged to home. Code(s): J45.901 - UNSPECIFIED ASTHMA WITH (ACUTE) EXACERBATION
[2017-03-11] MEDS: Tamiflu 75MG Capsule PO SCH ×2 (10:44→21:12)
[2017-03-11 10:51] LABS: Hematocrit 40.7 % (35-47); Hemoglobin 13.5 gm/dl (12.0-16.0); Mean Cell Volume 89.6 fl (78-100); Mean Corpuscular Hemoglobin 29.7 pg (26-32); Mean Corpuscular Hgb Concent. 33.2 g/dl (32-36); Mean Platelet Volume 9.7 fl (6-9.5); Platelet Count 280 K/mm3 (150-450); Red Blood Count 4.54 M/mm3 (4.1-5.4); Red Cell Distribution Width 16.4 % (11.5-14.0); White Blood Count 14.3 K/mm3 (4.0-10.5)
[2017-03-11 11:04] LABS: ANION GAP 19.8 MEQ/L (5-15); Calcium 9.4 mg/dL (8.5-10.1); Creatinine 1 1.34 mg/dl (0.55-1.30); Potassium 4.1 mEq/L (3.5-5.1)
[2017-03-11 11:50] LABS: Carbon Dioxide 14.2 mEq/L (21-32)
[2017-03-11] MEDS ORDERED: ULTRAM 50 MG PO PRN (11:56)
[2017-03-11] MEDS ORDERED: solu-MEDROL 125 MG IV SCH ×2 (12:00)
[2017-03-11 12:15] LABS: A-aADO2 -4; ABG HEMOGLOBIN 13.9; ABG POTASSIUM 4.3 (3.5-5.1); ARTERIAL BLD GAS O2 SATURATION 99.5 % (95-100); ARTERIAL BLOOD GAS FIO2 21 %; ARTERIAL BLOOD GAS PCO2 27 mmHg (35-45); ARTERIAL BLOOD GAS PO2 120 mmHg (75-100); ARTERIAL BLOOD GAS pH 7.31 (7.35-7.45); CARBOXYHEMOGLOBIN 2.6 % THgb (0.0-6.9); HCO3- 13.6 (22-28); HGB O2 SAT 95.6 g/dF (94-100); Methhemoglobin 1.4 % (1.4-1.5); paO2 pAO1 1.03
[2017-03-11 12:16] LABS: ABG SITE LEFT RADIAL; ALLEN TEST OK? YES
[2017-03-11] MEDS ORDERED: Sodium Chloride 0.9% 1000 ML 1,000 ML IV STA (12:40)
[2017-03-11 13:12] LABS: Lactic Acid 7.6 (0.4-2.0)
[2017-03-11] MEDS: Lantus Insulin SQ SCH ×2 (13:16→15:47)
[2017-03-11] MEDS: NovoLOG Insulin SQ PRN ×2 (13:16→21:13)
[2017-03-11] MEDS: Sodium Chloride 0.9% 1000 ML 1,000 ML IV STA ×2 (15:40→18:20)
[2017-03-11 15:55] LABS: Lactic Acid 6.1 (0.4-2.0)
[2017-03-11 20:44] LABS: ANION GAP 17.6 MEQ/L (5-15); Calcium 8.9 mg/dL (8.5-10.1); Carbon Dioxide 16.7 mEq/L (21-32); Creatinine 1 1.32 mg/dl (0.55-1.30)
[2017-03-11 21:32] LABS: Lactic Acid 4.8 (0.4-2.0)
[2017-03-12] MEDS: Sodium Chloride 0.9% 1000 ML 1,000 ML IV SCH ×3 (01:39→17:57)
[2017-03-12] MEDS: DUONEB 0.5-3 MG/3 ml Neb IH SCH ×6 (03:24→22:30)
[2017-03-12] MEDS: MORPHINE SULFATE 4 MG INJ IV PRN ×6 (04:08→22:49)
[2017-03-12 05:26] LABS: Lactic Acid 4.6 (0.4-2.0)
[2017-03-12 05:39] LABS: Granulocyte Absolute (ANC) 13.64 (1.4-6.9); Hematocrit 36.2 % (35-47); Mean Corpuscular Hgb Concent. 33.1 g/dl (32-36); Mean Platelet Volume 9.6 fl (6-9.5); Platelet Count 276 K/mm3 (150-450); Red Blood Count 4.02 M/mm3 (4.1-5.4); Red Cell Distribution Width 16.3 % (11.5-14.0); White Blood Count 15.8 K/mm3 (4.0-10.5)
[2017-03-12 05:40] LABS: Mean Corpuscular Hemoglobin 29.8 pg (26-32)
[2017-03-12 05:43] LABS: ANION GAP 16.3 MEQ/L (5-15); BLOOD UREA NITROGEN 13 mg/dL (9-20); CHLORIDE 103 mEq/L (98-107); Calcium 9.1 mg/dL (8.5-10.1); Carbon Dioxide 19.5 mEq/L (21-32); Creatinine 1 1.08 mg/dl (0.55-1.30); EST GLOMERULAR FILTRATION RATE > 60 ML/MIN; Glucose 358 MG/DL (70-110); Potassium 4.1 mEq/L (3.5-5.1); SODIUM 135 mEq/L (136-145)
[2017-03-12] MEDS: solu-MEDROL 125 MG IV SCH ×3 (06:42→21:19)
[2017-03-12] MEDS: Lantus Insulin SQ SCH (08:22)
[2017-03-12] MEDS: NovoLOG Insulin SQ PRN ×4 (08:23→21:53)
[2017-03-12] MEDS ORDERED: Sodium Chloride 0.9% 1000 ML 1,000 ML IV STA (09:42)
[2017-03-12 10:13] LABS: BAND 9 % (0.0-2.0); Lymphocytes 5 % (24-44); Monocyte 4 % (0.0-12.0); Neutrophils 82 % (36.0-66.0); Platelet Estimate NORMAL (NORMAL); Total Cells Counted 100
[2017-03-12 10:14] LABS: Toxic Granulation 2+
[2017-03-12] MEDS: LEVOFLOXACIN 750MG/150ML D5W 750 MG/150 ML BAG IV SCH (10:41)
[2017-03-12] MEDS: SYNTHROID 100 MCG PO SCH (11:03)
[2017-03-12] MEDS: CLARITIN 10 MG PO SCH (11:03)
[2017-03-12] MEDS: Pepcid 20 MG PO SCH ×2 (11:03→21:19)
[2017-03-12] MEDS: Singulair 10 MG PO SCH (11:03)
[2017-03-12] MEDS: ZOLOFT 50 MG TABLET PO SCH (11:04)
[2017-03-12] MEDS: Flonase NASAL NS SCH (11:04)
[2017-03-12] MEDS: Tamiflu 75MG Capsule PO SCH ×2 (11:06→21:19)
[2017-03-12] MEDS ORDERED: DIFLUCAN PO ONE (12:15)
[2017-03-12] MEDS ORDERED: Lantus Insulin SQ SCH (12:24)
--- NOTE | 2017-03-12 12:30 | PCM.NOTE ---
Date and Time: 03/12/17 1225 Subjective Assessment: Yesterday when I saw the pt she was very cooperative and pleasant. Morphine IV was ordered and I stopped that and started po tramadol. Pt became extremely agitated when she found out, started yelling that she shouldn't be treated like a junkie, said she wanted to , using foul language, complained about the nurse and the charge nurse (demanding another nurse), ripped her IV out of her arm, came out into the forrester, ultimately said she was leaving the hospital and walked around the forrester. Within 30-45 min she was back in her room. We did call the Translator, he came and filed paperwork to emergency detain the patient. At the same time, her lactate was 7 and her CO2 was lower than at admission. ABG with pH 7.31 and looked like metabolic acidosis. Two L of fluid given as a bolus with decrease in lactic acid to around 4. This morning LA was 5. This morning she is cooperative and pleasant. Asks me pleasantly to not stop the morphine, c/o 6/10 chest pain with cough and breathing, states she has bottles of tramadol at home and they don't work for her (and she is allergic to Vicodin). Pt asked for diflucan 2d ago, states she gets a yeast infection with her antibiotics. Asking for another diflucan today. Also asking for something for constipation. Objective Exam General Appearance: no apparent distress, alert, obese Neurologic Exam: oriented x 3, cooperative Skin Exam: normal color, warm, dry, No rash Respiratory Exam: diminished breath sounds (fair air exchange), wheezing ( throughout), No crackles/rales, No rhonchi, No stridor Cardiovascular Exam: regular rate/rhythm, normal heart sounds, No murmur Gastrointestinal/Abdomen Exam: soft, normal bowel sounds, No tenderness Extremity Exam: No pedal edema, No swelling OBJECTIVE DATA Vital Signs: Vital Signs - 24 hr Temp Pulse Resp BP Pulse Ox 03/12/17 11:00 112 H 20 96 03/12/17 08:00 97.3 F 117 H 20 135/95 95 03/12/17 07:00 91 H 18 94 L 03/12/17 04:00 97.8 F 108 H 20 113/88 96 03/12/17 03:24 81 18 98 03/12/17 00:00 97.8 F 106 H 18 115/75 96 03/11/17 23:13 99 H 20 97 03/11/17 20:03 106 H 20 95 03/11/17 19:30 98 F 107 H 20 121/61 96 03/11/17 16:00 104 H 18 95 03/11/17 15:50 80 20 131/77 97 Pain Assessment - Last Documented Pain Intensity 6 Pain Scale Used 0-10 Pain Scale Intake and Output: Intake & Output 03/10/17 03/11/17 03/12/17 03/13/17 11:59 11:59 11:59 11:59 Intake Total 1740 6218 Output Total 1450 4950 Balance 290 2468 Weight 103.918 kg Lab Results: Accuchecks Date 03/11/17 Time 17:00 Accucheck Value: 286 Accucheck Value: 292 Lab Results-Last 24 Hours 03/11/17 03/11/17 03/11/17 Range/Units 10:44 12:21 15:35 WBC (4.0-10.5) K/mm3 RBC (4.1-5.4) M/mm3 Hgb (12.0-16.0) gm/dl Hct (35-47) % MCV (78-100) fl MCH (26-32) pg MCHC (32-36) g/dl RDW (11.5-14.0) % Plt Count (150-450) K/mm3 MPV (6-9.5) fl Segmented Neutrophils (36.0-66.0) % Band Neutrophils (0.0-2.0) % Lymphocytes (Manual) (24-44) % Monocytes (Manual) (0.0-12.0) % Differential Comment Toxic Granulation Platelet Estimate (NORMAL) Sodium (136-145) mEq/L Potassium (3.5-5.1) mEq/L Chloride (98-107) mEq/L Carbon Dioxide (21-32) mEq/L Anion Gap (5-15) MEQ/L BUN (9-20) mg/dL Creatinine (0.55-1.30) mg/dl Estimated GFR ML/MIN Glucose (70-110) MG/DL Hemoglobin A1c 7.2 H (4.5-6.2) Lactic Acid 7.6 H 6.1 H (0.4-2.0) Calcium (8.5-10.1) mg/dL 03/11/17 03/11/17 03/12/17 Range/Units 17:35 20:20 05:00 WBC 15.8 H (4.0-10.5) K/mm3 RBC 4.02 L (4.1-5.4) M/mm3 Hgb 12.0 (12.0-16.0) gm/dl Hct 36.2 (35-47) % MCV 90.0 (78-100) fl MCH 29.8 (26-32) pg MCHC 33.1 (32-36) g/dl RDW 16.3 H (11.5-14.0) % Plt Count 276 (150-450) K/mm3 MPV 9.6 H (6-9.5) fl Segmented Neutrophils 82 H (36.0-66.0) % Band Neutrophils 9 H (0.0-2.0) % Lymphocytes (Manual) 5 L (24-44) % Monocytes (Manual) 4 (0.0-12.0) % Differential Comment ABNORMAL Toxic Granulation 2+ Platelet Estimate NORMAL (NORMAL) Sodium 133 L (136-145) mEq/L Potassium 4.0 (3.5-5.1) mEq/L Chloride 103 (98-107) mEq/L Carbon Dioxide 16.7 L (21-32) mEq/L Anion Gap 17.6 H (5-15) MEQ/L BUN 11 (9-20) mg/dL Creatinine 1.32 H (0.55-1.30) mg/dl Estimated GFR 51 ML/MIN Glucose 357 H (70-110) MG/DL Hemoglobin A1c (4.5-6.2) Lactic Acid 4.8 H (0.4-2.0) Calcium 8.9 (8.5-10.1) mg/dL 03/12/17 03/12/17 03/12/17 Range/Units 05:00 05:15 07:25 WBC (4.0-10.5) K/mm3 RBC (4.1-5.4) M/mm3 Hgb (12.0-16.0) gm/dl Hct (35-47) % MCV (78-100) fl MCH (26-32) pg MCHC (32-36) g/dl RDW (11.5-14.0) % Plt Count (150-450) K/mm3 MPV (6-9.5) fl Segmented Neutrophils (36.0-66.0) % Band Neutrophils (0.0-2.0) % Lymphocytes (Manual) (24-44) % Monocytes (Manual) (0.0-12.0) % Differential Comment Toxic Granulation Platelet Estimate (NORMAL) Sodium 135 L (136-145) mEq/L Potassium 4.1 (3.5-5.1) mEq/L Chloride 103 (98-107) mEq/L Carbon Dioxide 19.5 L (21-32) mEq/L Anion Gap 16.3 H (5-15) MEQ/L BUN 13 (9-20) mg/dL Creatinine 1.08 (0.55-1.30) mg/dl Estimated GFR > 60 ML/MIN Glucose 358 H (70-110) MG/DL Hemoglobin A1c (4.5-6.2) Lactic Acid 4.6 H 5.0 H (0.4-2.0) Calcium 9.1 (8.5-10.1) mg/dL Multi-Disciplinary Progress Notes: Multi-Disciplinary Progress Notes 03/12/17 09:27 Case Management Note by Latoya Lind DISCHARGE NEEDS REVIEWED, SEE AT HOME PLAN. [employer] PAPERS FROM [employer] EXPLAINED, SIGNED AND COPY GIVEN TO PT, WITH THE ORIGINAL ATTACHED TO THE PT CHART. Initialized on 03/12/17 09:27 - END OF NOTE 03/11/17 12:51 Respiratory Note by Kvng Willson VALUES VERBALLY REPORTED TO DR CARTER @ 1206 03/11/2017. Initialized on 03/11/17 12:51 - END OF NOTE Assessment/Plan (1) Pneumonia Current Visit: Yes Status: Acute Qualifiers: Pneumonia type: due to unspecified organism Laterality: left Lung location: lower lobe of lung Qualified Code(s): J18.1 - Lobar pneumonia, unspecified organism Assessment & Plan: She is on IV levaquin and solumedrol 60mg q8h (decreased from 80mg IV q6h yesterday). Will not decrease the solumedrol at this time as she is still quite wheezy - perhaps wheezier but she is feeling "about the same" so will not make any changes to the IV steroids at this time. Code(s): J18.9 - PNEUMONIA, UNSPECIFIED ORGANISM (2) Influenza A Current Visit: Yes Status: Acute Assessment & Plan: on Tamiflu. Code(s): J10.1 - FLU DUE TO OTH IDENT INFLUENZA VIRUS W OTH RESP MANIFEST (3) Asthma exacerbation Current Visit: Yes Status: Acute Qualifiers: Asthma severity: severe Code(s): J45.901 - UNSPECIFIED ASTHMA WITH (ACUTE) EXACERBATION (4) Depression with suicidal ideation Current Visit: Yes Status: Acute Assessment & Plan: Has a history of admissions for same. Denying active suicidal ideation right now but "I have thouths." She agrees that "this is where I need to be." [facility] was contacted this morning, they do not want to consult until she is medically stable. Code(s): F32.9 - MAJOR DEPRESSIVE DISORDER, SINGLE EPISODE, UNSPECIFIED; R45.851 - SUICIDAL IDEATIONS (5) Agitation Current Visit: Yes Status: Resolved (6) Leukocytosis Current Visit: Yes Status: Acute Qualifiers: Leukocytosis type: unspecified Qualified Code(s): D72.829 - Elevated white blood cell count, unspecified Assessment & Plan: likely due to PNA and steroids. does have increased bands today, from 3 initially to 9 today. Recheck in a.m. Code(s): D72.829 - ELEVATED WHITE BLOOD CELL COUNT, UNSPECIFIED (7) Hyponatremia Current Visit: Yes Status: Acute Assessment & Plan: mild; observe Code(s): E87.1 - HYPO-OSMOLALITY AND HYPONATREMIA (8) Diabetes mellitus Current Visit: Yes Status: Chronic Qualifiers: Diabetes mellitus type: type 2 Diabetes mellitus complication status: without complication Diabetes mellitus custodial insulin use: without pit supervisor use Qualified Code(s): E11.9 - Type 2 diabetes mellitus without complications Assessment & Plan: As far as I know this is a new diagnosis. Her a1c is 7.2. Her BS are 200s- 300s right now with all the steroids. I started her on insulin 10 units yesterday but increased to 15 units today and she has a sliding scale. Code(s): E11.9 - TYPE 2 DIABETES MELLITUS WITHOUT COMPLICATIONS
[2017-03-12] MEDS: Ativan 0.5 MG PO PRN ×2 (12:38→19:31)
[2017-03-12 13:02] LABS: Lactic Acid 7.9 (0.4-2.0)
[2017-03-12 13:18] LABS: VBG BASE EXCESS -10.1 (-2.0-2.0); VBG CARBOXYHEMOGLOBIN 1.9 % T HGB (0.0-6.9); VBG HCO3- 17.6 meq/L (22-28); VBG HEMOGLOBIN 12.2; VBG O2 SATURATION 43.3 (95-100); VBG POTASSIUM 4.1 (3.5-5.1)
[2017-03-12 13:19] LABS: VBG pH 7.2 (7.32-7.42)
[2017-03-12 14:03] LABS: A-aADO2 40; ABG HEMOGLOBIN 12.2; ABG POTASSIUM 3.9 (3.5-5.1); ARTERIAL BLD GAS O2 SATURATION 96.9 % (95-100); ARTERIAL BLOOD GAS BASE EXCESS -8.4 (-2.0-2.0); ARTERIAL BLOOD GAS FIO2 21 %; ARTERIAL BLOOD GAS PCO2 30 mmHg (35-45); ARTERIAL BLOOD GAS PO2 72 mmHg (75-100); ARTERIAL BLOOD GAS pH 7.34 (7.35-7.45); CARBOXYHEMOGLOBIN 2.1 % THgb (0.0-6.9); HCO3- 16.2 (22-28); HGB O2 SAT 93.5 g/dF (94-100); Methhemoglobin 1.3 % (1.4-1.5); paO2 pAO1 0.64
[2017-03-12 14:53] LABS: ABG SITE LEFT BRACHIAL
[2017-03-12] MEDS: Miralax Powder 17GM PACKET PO PRN (15:35)
[2017-03-12 15:36] LABS: Lactic Acid 5.5 (0.4-2.0)
[2017-03-12] MEDS: ADVAIR 250-50 DISKUS 14 DOSE IH SCH ×2 (17:34→17:37)
[2017-03-13] MEDS: Sodium Chloride 0.9% 1000 ML 1,000 ML IV SCH ×3 (00:42→18:03)
[2017-03-13] MEDS: Ativan 0.5 MG PO PRN ×4 (01:37→20:02)
[2017-03-13] MEDS: MORPHINE SULFATE 4 MG INJ IV PRN ×5 (03:01→20:28)
[2017-03-13] MEDS: DUONEB 0.5-3 MG/3 ml Neb IH SCH ×5 (03:06→19:00)
[2017-03-13] MEDS: solu-MEDROL 125 MG IV SCH (05:19)
[2017-03-13 06:05] LABS: Lactic Acid 3.6 (0.4-2.0)
[2017-03-13 06:31] LABS: Granulocyte Absolute (ANC) 12.62 (1.4-6.9); Hematocrit 34.3 % (35-47); Hemoglobin 11.3 gm/dl (12.0-16.0); Mean Cell Volume 89.3 fl (78-100); Mean Corpuscular Hemoglobin 29.4 pg (26-32); Mean Corpuscular Hgb Concent. 32.9 g/dl (32-36); Mean Platelet Volume 10.5 fl (6-9.5); Platelet Count 230 K/mm3 (150-450); Red Blood Count 3.84 M/mm3 (4.1-5.4); Red Cell Distribution Width 15.8 % (11.5-14.0); White Blood Count 14.7 K/mm3 (4.0-10.5)
[2017-03-13 06:50] LABS: ANION GAP 13.5 MEQ/L (5-15); BLOOD UREA NITROGEN 15 mg/dL (9-20); CHLORIDE 101 mEq/L (98-107); Calcium 8.9 mg/dL (8.5-10.1); Carbon Dioxide 22.6 mEq/L (21-32); Creatinine 1 0.93 mg/dl (0.55-1.30); EST GLOMERULAR FILTRATION RATE > 60 ML/MIN; Glucose 327 MG/DL (70-110); Potassium 3.8 mEq/L (3.5-5.1); SODIUM 133 mEq/L (136-145)
[2017-03-13] MEDS: Singulair 10 MG PO SCH (07:32)
[2017-03-13] MEDS: CLARITIN 10 MG PO SCH (07:32)
[2017-03-13] MEDS: Pepcid 20 MG PO SCH ×2 (07:33→21:30)
[2017-03-13] MEDS: SYNTHROID 100 MCG PO SCH (07:33)
[2017-03-13] MEDS: ZOLOFT 50 MG TABLET PO SCH (07:35)
[2017-03-13] MEDS: LEVOFLOXACIN 750MG/150ML D5W 750 MG/150 ML BAG IV SCH (07:36)
[2017-03-13] MEDS: Tamiflu 75MG Capsule PO SCH ×2 (07:36→21:30)
[2017-03-13] MEDS: Flonase NASAL NS SCH (07:36)
[2017-03-13] MEDS: NovoLOG Insulin SQ PRN ×4 (07:37→21:30)
[2017-03-13] MEDS: ADVAIR 250-50 DISKUS 14 DOSE IH SCH ×3 (07:45→19:19)
[2017-03-13 10:09] LABS: Lymphocytes 16 % (24-44); Monocyte 1 % (0.0-12.0); Neutrophils 83 % (36.0-66.0); Total Cells Counted 100
[2017-03-13 10:10] LABS: Platelet Estimate NORMAL (NORMAL)
--- NOTE | 2017-03-13 12:50 | PCM.NOTE ---
Date and Time: 03/13/17 1243 Subjective Assessment: she says she still has tightness in the chest and nonproductive cough she is urinating well had bm today was constipated prior to that. No vomiting. She is still sad at times but is not suicidal she does not want to hurt herself. She said she just was saying that she wanted to in the heat of the moment when arguing with one of the nurses. She says she has no desire to hurt herself now. Objective Exam General Appearance: no apparent distress, alert, obese Neurologic Exam: alert, oriented x 3, cooperative, normal mood/affect, nml cerebellar function, sensation nml, No motor deficits Skin Exam: normal color, warm, dry Eye Exam: PERRL, EOMI, eyes nml inspection Ears, Nose, Throat Exam: normal ENT inspection, pharynx normal, moist mucous membranes Neck Exam: normal inspection, non-tender, supple, full range of motion Respiratory Exam: wheezing, No respiratory distress Cardiovascular Exam: regular rate/rhythm, normal heart sounds Gastrointestinal/Abdomen Exam: soft, No tenderness, No mass Extremity Exam: normal inspection, normal range of motion Back Exam: normal inspection, normal range of motion, No CVA tenderness, No vertebral tenderness Pelvic Exam: deferred Rectal Exam: deferred OBJECTIVE DATA Vital Signs: Vital Signs - 24 hr Temp Pulse Resp BP Pulse Ox 03/13/17 12:29 95 H 18 95 03/13/17 10:53 82 16 117/70 94 L 03/13/17 08:00 98 F 71 18 104/89 96 03/13/17 07:34 71 18 97 03/13/17 04:00 97.3 F 74 18 104/80 93 L 03/13/17 03:55 95 H 03/13/17 03:06 75 18 95 03/12/17 23:51 94 H 03/12/17 23:50 97.3 F 94 H 18 144/87 94 L 03/12/17 22:30 114 H 18 96 03/12/17 19:44 97.7 F 81 16 137/84 96 03/12/17 19:38 86 03/12/17 16:00 97.7 F 86 18 137/84 96 03/12/17 15:00 99 H 20 94 L Pain Assessment - Last Documented Pain Intensity 6 Pain Scale Used 0-10 Pain Scale Intake and Output: Intake & Output 12/23/17 12/24/17 12/25/17 12/26/17 11:59 11:59 11:59 11:59 Intake Total 1745 3756 2251 Output Total 1458 5790 1650 Balance 290 2384 601 Weight 103.918 kg Lab Results: Accuchecks Date 03/13/17 Date 03/13/17 Date 03/12/17 Time 10:52 Time 07:11 Time 21:52 Accucheck Value: 308 Accucheck Value: 340 Accucheck Value: 274 Lab Results-Last 24 Hours 03/12/17 03/12/17 03/12/17 Range/Units 10:59 13:15 13:16 WBC (4.0-10.5) K/mm3 RBC (4.1-5.4) M/mm3 Hgb (12.0-16.0) gm/dl Hct (35-47) % MCV (78-100) fl MCH (26-32) pg MCHC (32-36) g/dl RDW (11.5-14.0) % Plt Count (150-450) K/mm3 MPV (6-9.5) fl Segmented Neutrophils (36.0-66.0) % Lymphocytes (Manual) (24-44) % Monocytes (Manual) (0.0-12.0) % Differential Comment Platelet Estimate (NORMAL) Puncture Site pCO2 (35-45) mmHg pO2 (75-100) mmHg Base Excess (-2.0-2.0) O2 Saturation (94-100) g/dF ABG pH (7.35-7.45) ABG HCO3 (22-28) ABG O2 Sat (Measured) (95-100) % Robert Test VBG pH 7.20 L* (7.32-7.42) VBG pCO2 at Pat Temp 45 (42-55) mm/Hg VBG pO2 at Pat Temp 22 L (25-40) mm/Hg VBG HCO3 17.6 L (22-28) meq/L VBG O2 Sat (Paul) 43.3 L (95-100) VBG Base Excess -10.1 L (-2.0-2.0) VBG Hemoglobin 12.2 VBG Carboxyhemoglobin 1.9 (0.0-6.9) % T HGB A-a Gradient a/A Ratio Hemoglobin Carboxyhemoglobin (0.0-6.9) % THgb Methemoglobin (1.4-1.5) % Potassium (3.5-5.1) POC Potassium 4.1 (3.5-5.1) Glucose 471 H (70-110) Temperature C POC O2 Flow Rate % Sodium (136-145) mEq/L Chloride (98-107) mEq/L Carbon Dioxide (21-32) mEq/L Anion Gap (5-15) MEQ/L BUN (9-20) mg/dL Creatinine (0.55-1.30) mg/dl Estimated GFR ML/MIN Lactic Acid 7.9 H (0.4-2.0) Calcium (8.5-10.1) mg/dL 03/12/17 03/12/17 03/13/17 Range/Units 14:01 14:55 06:00 WBC 14.7 H (4.0-10.5) K/mm3 RBC 3.84 L (4.1-5.4) M/mm3 Hgb 11.3 L (12.0-16.0) gm/dl Hct 34.3 L (35-47) % MCV 89.3 (78-100) fl MCH 29.4 (26-32) pg MCHC 32.9 (32-36) g/dl RDW 15.8 H (11.5-14.0) % Plt Count 230 (150-450) K/mm3 MPV 10.5 H (6-9.5) fl Segmented Neutrophils 83 H (36.0-66.0) % Lymphocytes (Manual) 16 L (24-44) % Monocytes (Manual) 1 (0.0-12.0) % Differential Comment NORMAL Platelet Estimate NORMAL (NORMAL) Puncture Site LEFT BRACHIAL pCO2 30 L (35-45) mmHg pO2 72 L (75-100) mmHg Base Excess -8.4 L (-2.0-2.0) O2 Saturation 93.5 L (94-100) g/dF ABG pH 7.34 L (7.35-7.45) ABG HCO3 16.2 L* (22-28) ABG O2 Sat (Measured) 96.9 (95-100) % Robert Test NOT APPLICABLE VBG pH (7.32-7.42) VBG pCO2 at Pat Temp (42-55) mm/Hg VBG pO2 at Pat Temp (25-40) mm/Hg VBG HCO3 (22-28) meq/L VBG O2 Sat (Paul) (95-100) VBG Base Excess (-2.0-2.0) VBG Hemoglobin VBG Carboxyhemoglobin (0.0-6.9) % T HGB A-a Gradient 40 a/A Ratio 0.64 Hemoglobin 12.2 Carboxyhemoglobin 2.1 (0.0-6.9) % THgb Methemoglobin 1.3 L (1.4-1.5) % Potassium 3.9 (3.5-5.1) POC Potassium (3.5-5.1) Glucose (70-110) Temperature 37.0 C POC O2 Flow Rate 21 % Sodium (136-145) mEq/L Chloride (98-107) mEq/L Carbon Dioxide (21-32) mEq/L Anion Gap (5-15) MEQ/L BUN (9-20) mg/dL Creatinine (0.55-1.30) mg/dl Estimated GFR ML/MIN Lactic Acid 5.5 H (0.4-2.0) Calcium (8.5-10.1) mg/dL 03/13/17 03/13/17 Range/Units 06:00 06:00 WBC (4.0-10.5) K/mm3 RBC (4.1-5.4) M/mm3 Hgb (12.0-16.0) gm/dl Hct (35-47) % MCV (78-100) fl MCH (26-32) pg MCHC (32-36) g/dl RDW (11.5-14.0) % Plt Count (150-450) K/mm3 MPV (6-9.5) fl Segmented Neutrophils (36.0-66.0) % Lymphocytes (Manual) (24-44) % Monocytes (Manual) (0.0-12.0) % Differential Comment Platelet Estimate (NORMAL) Puncture Site pCO2 (35-45) mmHg pO2 (75-100) mmHg Base Excess (-2.0-2.0) O2 Saturation (94-100) g/dF ABG pH (7.35-7.45) ABG HCO3 (22-28) ABG O2 Sat (Measured) (95-100) % Robert Test VBG pH (7.32-7.42) VBG pCO2 at Pat Temp (42-55) mm/Hg VBG pO2 at Pat Temp (25-40) mm/Hg VBG HCO3 (22-28) meq/L VBG O2 Sat (Paul) (95-100) VBG Base Excess (-2.0-2.0) VBG Hemoglobin VBG Carboxyhemoglobin (0.0-6.9) % T HGB A-a Gradient a/A Ratio Hemoglobin Carboxyhemoglobin (0.0-6.9) % THgb Methemoglobin (1.4-1.5) % Potassium 3.8 (3.5-5.1) POC Potassium (3.5-5.1) Glucose 327 H (70-110) Temperature C POC O2 Flow Rate % Sodium 133 L (136-145) mEq/L Chloride 101 (98-107) mEq/L Carbon Dioxide 22.6 (21-32) mEq/L Anion Gap 13.5 (5-15) MEQ/L BUN 15 (9-20) mg/dL Creatinine 0.93 (0.55-1.30) mg/dl Estimated GFR > 60 ML/MIN Lactic Acid 3.6 H (0.4-2.0) Calcium 8.9 (8.5-10.1) mg/dL Assessment/Plan (1) Asthma exacerbation Current Visit: Yes Status: Acute Qualifiers: Asthma severity: severe Assessment & Plan: will wean the steroids to prednisone 40 mg daily po continue nebs continue tamiflu and levaquin the lactic acidosis is improved today she has no evidence of decreased perfusion her insulin was increased again and hopefully with the steroid wean the hyperglycemia will improve she denies suicidal ideation now and is much more calm now for >24 hrs now will repeat labs in am. Code(s): J45.901 - UNSPECIFIED ASTHMA WITH (ACUTE) EXACERBATION (2) Influenza A Current Visit: Yes Status: Acute Code(s): J10.1 - FLU DUE TO OTH IDENT INFLUENZA VIRUS W OTH RESP MANIFEST (3) Pneumonia Current Visit: Yes Status: Acute Qualifiers: Pneumonia type: due to unspecified organism Laterality: left Lung location: lower lobe of lung Qualified Code(s): J18.1 - Lobar pneumonia, unspecified organism Code(s): J18.9 - PNEUMONIA, UNSPECIFIED ORGANISM (4) Lactic acidosis Current Visit: Yes Status: Acute Assessment & Plan: primary metabolic acidosis with respiratory compensation it is improving with volume resuscitation will change to LR she appears euvolemic at this time Code(s): E87.2 - ACIDOSIS (5) Depression with suicidal ideation Current Visit: Yes Status: Acute Code(s): F32.9 - MAJOR DEPRESSIVE DISORDER , SINGLE EPISODE, UNSPECIFIED; R45.851 - SUICIDAL IDEATIONS (6) Diabetes mellitus Current Visit: Yes Status: Chronic Qualifiers: Diabetes mellitus type: type 2 Diabetes mellitus complication status: without complication Diabetes mellitus shelter insulin use: without shelter use Qualified Code(s): E11.9 - Type 2 diabetes mellitus without complications Code(s): E11.9 - TYPE 2 DIABETES MELLITUS WITHOUT COMPLICATIONS
[2017-03-13] MEDS: Lactated Ringers 1,000 ML IV SCH ×2 (13:05→22:43)
[2017-03-13] MEDS ORDERED: Tums EX 750 MG PO PRN (14:50)
[2017-03-13] MEDS ORDERED: PROVENTIL 2.5 MG/3 ML NEB IH PRN (20:08)
[2017-03-13] MEDS ORDERED: DELTASONE 20 MG PO SCH (22:00)
[2017-03-14] MEDS: MORPHINE SULFATE 4 MG INJ IV PRN ×3 (00:38→09:10)
[2017-03-14] MEDS: DUONEB 0.5-3 MG/3 ml Neb IH SCH ×3 (02:36→11:31)
[2017-03-14 05:19] LABS: Granulocyte Absolute (ANC) 7.94 (1.4-6.9); Hematocrit 33.9 % (35-47); Hemoglobin 11.3 gm/dl (12.0-16.0); Mean Cell Volume 88.7 fl (78-100); Mean Corpuscular Hgb Concent. 33.3 g/dl (32-36); Mean Platelet Volume 9.4 fl (6-9.5); Platelet Count 210 K/mm3 (150-450); Red Blood Count 3.82 M/mm3 (4.1-5.4); Red Cell Distribution Width 15.6 % (11.5-14.0); White Blood Count 10.6 K/mm3 (4.0-10.5)
[2017-03-14 05:21] LABS: Lactic Acid 3.3 (0.4-2.0)
[2017-03-14 05:29] LABS: Mean Corpuscular Hemoglobin 29.5 pg (26-32)
[2017-03-14 05:54] LABS: ATYPICAL LYMPHS 1 %; BAND 3 % (0.0-2.0); Lymphocytes 19 % (24-44); Monocyte 1 % (0.0-12.0); Neutrophils 76 % (36.0-66.0); Platelet Estimate NORMAL (NORMAL); Total Cells Counted 100
[2017-03-14 06:23] LABS: ALBUMIN 3.1 g/dL (3.4-5.0); ALKALINE PHOSPHATASE 51 U/L (46-116); ANION GAP 14.1 MEQ/L (5-15); BLOOD UREA NITROGEN 13 mg/dL (9-20); CHLORIDE 101 mEq/L (98-107); Calcium 8.7 mg/dL (8.5-10.1); Carbon Dioxide 25.9 mEq/L (21-32); Creatinine 1 0.79 mg/dl (0.55-1.30); EST GLOMERULAR FILTRATION RATE > 60 ML/MIN; Glucose 274 MG/DL (70-110); Potassium 3.6 mEq/L (3.5-5.1); SGOT/AST 124 U/L (15-37); SGPT/ALT 105 U/L (12-78); SODIUM 137 mEq/L (136-145); Total Protein 6.5 gm/dL (6.4-8.2)
[2017-03-14] MEDS ORDERED: Lantus Insulin SQ SCH (08:00)
[2017-03-14] MEDS: NovoLOG Insulin SQ PRN ×2 (08:03→11:24)
[2017-03-14] MEDS: Lactated Ringers 1,000 ML IV SCH (08:25)
[2017-03-14] MEDS: Ativan 0.5 MG PO PRN (08:25)
[2017-03-14 08:41] LABS: Lactic Acid 5.7 (0.4-2.0)
[2017-03-14] MEDS: CLARITIN 10 MG PO SCH (09:07)
[2017-03-14] MEDS: SYNTHROID 100 MCG PO SCH (09:07)
[2017-03-14] MEDS: Miralax Powder 17GM PACKET PO PRN (09:07)
[2017-03-14] MEDS: LEVOFLOXACIN 750MG/150ML D5W 750 MG/150 ML BAG IV SCH (09:07)
[2017-03-14] MEDS: Singulair 10 MG PO SCH (09:08)
[2017-03-14] MEDS: ZOLOFT 50 MG TABLET PO SCH (09:08)
[2017-03-14] MEDS: Tamiflu 75MG Capsule PO SCH (09:08)
[2017-03-14] MEDS: Pepcid 20 MG PO SCH (09:08)
--- NOTE | 2017-03-14 09:18 | PCM.DCORD ---
- Discharge Discharge Date: 03/14/17 Disposition: Home, Self-Care Condition: Stable Prescriptions: New Prednisone 20 mg [Deltasone 20 mg] 20 mg PO DAILY 15 Days #30 tablet Fluconazole 100 mg [Diflucan 100 MG] 100 mg PO DAILY PRN PRN 1 Days #1 tablet PRN Reason: vaginal discomfort Levofloxacin [Levaquin] 500 mg PO DAILY 7 Days #7 tablet Oseltamivir 75 mg [Tamiflu 75MG Capsule] 75 mg PO BID 2 Days #3 cap Continue Fluticasone Propionate [Flonase NASAL] 16 gm NS QAM Cetirizine HCl [Zyrtec] 10 mg PO QAM Albuterol Sulfate [Proair Hfa] 8.5 gm IH BID PRN PRN Reason: Shortness Of Breath/Wheezing Montelukast Sodium 10 mg [Singulair 10 MG] 10 mg PO QAM Famotidine 20 mg [Pepcid 20 MG] 20 mg PO BID Levothyroxine Sodium [Levoxyl] 200 mcg PO QAM Fluticasone/Salmeterol [Advair 250-50 Diskus] 1 each IH BID Lorazepam 0.5 mg [Ativan 0.5 MG] 0.5 mg PO Q6H PRN PRN 30 Days #120 tablet PRN Reason: Anxiety Albuterol/Ipratropium 3ml Neb* [DUONEB 0.5-3 MG/3 ml Neb] 3 ml IH Q4HRT PRN 30 Days #180 ampul.neb PRN Reason: Shortness Of Breath/Wheezing Follow up with: RUDI GERONIMO [Primary Care Provider] -
[2017-03-14] MEDS: Flonase NASAL NS SCH (09:20)
[2017-03-14] MEDS ORDERED: DELTASONE 20 MG PO SCH (10:00)
--- NOTE | 2017-03-14 11:08 | DS ---
DISCHARGE DIAGNOSIS: 1. INFLUENZA. 2. EXACERBATION OF ASTHMA. 3. PNEUMONIA. 4. NEW DIAGNOSIS TYPE 2 DIABETES MELLITUS. 5. MORBID OBESITY. BRIEF HISTORY: The patient is a 24 y/o WF who presented herself to the [facility]. She was wheezing, having an exacerbation of her asthma. She was admitted to the hospital for aggressive management. The patient was found to have a lactic acid in the 6 range on initial evaluation and her evaluation did reveal positive for influenza. The patient was admitted to the hospital. HOSPITAL COURSE: The patient was admitted for IV fluids and close observation and treatment with IV Solu-Medrol for her asthma. She was also placed on Tamiflu and Levaquin empirically due to atelectasis or infiltrate in the left base. The patient did have a fit about being on morphine. She apparently was placed on it in the Emergency Room, but not on the floor. She became irate and began pulling out IV's and reported that she wanted to , that we just didn't care. The patient had an ED due to this and has been evaluated by [facility] for suicidal ideation. When I saw her on 03/14/17, the patient had absolutely no suicidal ideation. It was more of a ploy to get her medication that she wanted as she is pleasant to me in the room today and actually requesting to go home. The patient will be discharged home after her consultation with [facility]. She does still have some bibasilar wheezes, but is in a good place for her normal state of health. The patient will be discharged home on Prednisone at 60 mg for 5 days, 40 for 5, and 20 for 5. She will be on Levaquin 500 mg a day for an additional 7 days. She will be on nebulizer treatments and finish a round a Tamiflu for her influenza as well. She was given an appointment to see me in the office in the next week for follow-up or to return to the hospital if she had any exacerbations or problems in the interim.
[2017-03-14 11:16] VITALS: BP 122/72
[2017-03-14 12:04] VITALS: PULSE 76; O2SAT 97
== END 2017-03-14 12:45 | disposition home or self-care (01) | DRG 194 ==
LOC: ED 15:43 → MED SURG 19:41 → ICU 03-11 01:30 → MED SURG 03-13 14:18
PROVIDERS: ADMIT Family Medicine; ATTEND Family Medicine
DX: J10.1 Influenza due to other identified influenza virus with other respiratory manifestations (principal); R45.851 Suicidal ideations; J45.901 Unspecified asthma with (acute) exacerbation; Z85.71 Personal history of Hodgkin lymphoma; E87.1 Hypo-osmolality and hyponatremia; E87.2 Acidosis; J18.1 Lobar pneumonia, unspecified organism; F41.9 Anxiety disorder, unspecified; J45.909 Unspecified asthma, uncomplicated; E11.9 Type 2 diabetes mellitus without complications; Z79.4 Long term (current) use of insulin; E66.01 Morbid (severe) obesity due to excess calories; F32.9 Major depressive disorder, single episode, unspecified; E03.9 Hypothyroidism, unspecified; K21.9 Gastro-esophageal reflux disease without esophagitis; R45.1 Restlessness and agitation; D72.829 Elevated white blood cell count, unspecified; Z79.899 Other long term (current) drug therapy
CPT/HCPCS: 36000; 36415; 36600; 71010; 80048; 80053; 82375; 82803; 82805; 82947; 82962; 83036; 83605; 83735; 84484; 85025; 85027; 87040; 87631; 90791; 94640; 94760; 99285; J1956; J2270; J2930; Q3014; A9270-GY